=== PATIENT | female | born 1960 | race Caucasian/White ===

== ENCOUNTER → 2016-09-06 | Outpatient (CLI) | payer MEDICAID ==
[~2016-09-06] MED LIST: AMIO200T PO; ASPI-231 PO; ATOR20TA PO; CITA20TA3 PO; FUR40T PO; LISI-275 PO; MET50T PO; NITR0.4S29 SL; POTA12PO2 PO; WARF5TAB71 PO
[2016-09-06 08:27] LABS: INR 1.3 (0.7-1.3); Prothrombin Time 15.8 sec (9.0-12.0)
== END | disposition home or self-care (01) ==
LOC: LAB 08:08
PROVIDERS: ATTEND Internal Medicine Cardiovascular Disease
DX: R79.1 Abnormal coagulation profile (principal)
CPT/HCPCS: 85610

== ENCOUNTER → 2016-09-16 | Outpatient (CLI) | payer MEDICAID ==
[2016-09-16 08:22] LABS: INR 1.1 (0.7-1.3); Prothrombin Time 13.1 sec (9.0-12.0)
== END | disposition home or self-care (01) ==
LOC: LAB 08:02
PROVIDERS: ATTEND Internal Medicine Cardiovascular Disease
DX: R79.1 Abnormal coagulation profile (principal)
CPT/HCPCS: 85610

== ENCOUNTER 2017-01-10 18:09 | Inpatient (IN) | payer MEDICAID ==
[~2017-01-10] VITALS: Ht 182.9 cm; Wt 81.6 kg
[2017-01-10 18:52] LABS: Basophils # (auto) 0.1 uL; Basophils % (auto) 1.3 % (0.0-2.0); CONDITION Y; Eosinophils # (auto) 0.1 uL; Eosinophils % (auto) 2.5 % (0.0-7.0); Hematocrit 34.4 % (36.0-46.0); Hemoglobin 11.5 g/dL (12.2-16.2); Lymphocytes # (auto) 2.1 uL; Lymphocytes % (auto) 38.8 % (10.0-50.0); Mean Corpuscular Hemoglobin 33.5 pg (28.0-32.0); Mean Corpuscular Hgb Conc. 33.5 g/dL (32.0-36.0); Mean Corpuscular Volume 99.8 fL (80.0-100.0); Mean Platelet Volume 8.6 fL (7.4-10.4); Monocytes # (auto) 0.8 uL; Monocytes % (auto) 14.8 % (0.0-12.0); Neutrophils # (auto) 2.3 uL; Neutrophils % (auto) 42.6 % (37.0-80.0); Platelet Count (auto) 342 10^3/uL (140-450); Red Cell Distribution Width 14.4 % (11.6-16.0); White Blood Cell 5.5 10^3/uL (4.4-10.8)
[2017-01-10 19:15] LABS: Albumin 3.6 g/dL (3.4-5.0); Anion Gap 9 (5-15); BUN/Creatinine Ratio 16.7; Blood Urea Nitrogen 17 mg/dL (7-18); Calcium 8.1 mg/dL (8.5-10.1); Carbon Dioxide 26 mmol/L (21-32); Chloride 107 mmol/L (98-107); GFR African American 72 mL/min; GFR Non-African American 60 mL/min; Glucose 93 mg/dL (74-106); Sodium 142 mmol/L (136-145)
[2017-01-10 19:26] LABS: Alkaline Phosphatase 88 U/L (45-117); Bilirubin, Total 0.3 mg/dL (0.2-1.0); Total Protein 7.4 g/dL (6.4-8.2)
[2017-01-10 19:38] LABS: Potassium 4.6 mmol/L (3.5-5.1)
[2017-01-10 19:44] LABS: Aspartate Aminotransferase 35 U/L (15-37)
[2017-01-10] MEDS ORDERED: SODIUM CHLORIDE 0.9% 1,000 ML IVB ONE (22:27)
[2017-01-10] MEDS ORDERED: HYDROcodone-ACET 5/325MG TAB PO ONE (22:30)
[2017-01-10] MEDS ORDERED: LORazepam 2MG/ML-1ML VIAL IV ONE (22:30)
[2017-01-10] MEDS ORDERED: ONDANSETRON HCL 4 MG/2 ML VIAL IV ONE (22:30)
[2017-01-10 23:02] LABS: Basophils # (auto) 0.1 uL; Basophils % (auto) 1.2 % (0.0-2.0); CONDITION Y; Eosinophils # (auto) 0.1 uL; Eosinophils % (auto) 1.8 % (0.0-7.0); Hematocrit 37.6 % (36.0-46.0); Hemoglobin 12.6 g/dL (12.2-16.2); Lymphocytes # (auto) 1.7 uL; Lymphocytes % (auto) 25.9 % (10.0-50.0); Mean Corpuscular Hemoglobin 33.3 pg (28.0-32.0); Mean Corpuscular Hgb Conc. 33.4 g/dL (32.0-36.0); Mean Corpuscular Volume 99.6 fL (80.0-100.0); Mean Platelet Volume 8.4 fL (7.4-10.4); Monocytes # (auto) 0.8 uL; Monocytes % (auto) 11.5 % (0.0-12.0); Neutrophils % (auto) 59.6 % (37.0-80.0); Platelet Count (auto) 366 10^3/uL (140-450); Red Cell Distribution Width 14.4 % (11.6-16.0); White Blood Cell 6.7 10^3/uL (4.4-10.8)
[2017-01-10 23:12] LABS: INR 1.89 (0.9-1.15); Partial Thromboplastin Time 38.8 sec (22.64-33.71)
[2017-01-10 23:23] LABS: Prothrombin Time 20.7 sec (9.37-12.3)
[2017-01-10 23:38] LABS: Albumin 4.1 g/dL (3.4-5.0); Calcium 8.6 mg/dL (8.5-10.1); Magnesium 2.1 mg/dL (1.6-2.6)
[2017-01-10 23:40] LABS: BUN/Creatinine Ratio 17.5
[2017-01-10 23:45] LABS: Bilirubin, Total 0.3 mg/dL (0.2-1.0); Total Protein 8.1 g/dL (6.4-8.2)
[2017-01-11] MEDS ORDERED: LORazepam 2MG/ML-1ML VIAL IV PRN (01:15)
[2017-01-11] MEDS ORDERED: HYDROmorphone HCL 2 MG/ML VL IV PRN (01:15)
[2017-01-11] MEDS ORDERED: LACTULOSE 20Gm/30ML SOLN PO PRN (01:15)
[2017-01-11] MEDS ORDERED: ONDANSETRON HCL 4 MG/2 ML VIAL IV PRN (01:15)
[2017-01-11] MEDS ORDERED: NITROGLYCERIN 0.4 MG SL TAB SL PRN (01:15)
[2017-01-11] MEDS ORDERED: MORPHINE SULFATE 4 MG/ML SYRG IV PRN (01:15)
[2017-01-11] MEDS ORDERED: AMIODARONE HCL 200 MG TAB PO SCH (10:00)
[2017-01-11] MEDS ORDERED: METOPROLOL TARTRATE 25 MG TAB PO SCH (10:00)
[2017-01-11] MEDS ORDERED: CITALOPRAM HYDROBR 20 MG TAB PO SCH (10:00)
[2017-01-11] MEDS ORDERED: LISINOPRIL 5 MG TAB PO SCH (10:00)
[2017-01-11] MEDS ORDERED: PANTOPRAZOLE SODIUM 40 MG/10 ML VIAL IV SCH (10:00)
[2017-01-11] MEDS ORDERED: FUROSEMIDE 20 MG TAB PO SCH (10:00)
[2017-01-11] MEDS ORDERED: POTASSIUM CHL 20 Meq TABLET PO SCH (10:00)
[2017-01-11] MEDS ORDERED: THIAMINE INJ 100 MG, MULTIPLE VITAMIN 10 ML, FOLIC ACID 1 MG, MAGNESIUM SULF SDV 50% 8 ... IV SCH ×5 (12:00)
[2017-01-11 15:00] VITALS: BP 139/95
[2017-01-11] MEDS ORDERED: WARFARIN SODIUM 5 MG TAB PO SCH (17:00)
[2017-01-11] MEDS ORDERED: ATORVASTATIN 20 MG TAB PO SCH (22:00)
== END 2017-01-11 16:02 | disposition home or self-care (01) | DRG 347 ==
LOC: EDBD 18:09 → EDUNIT# 18:09 → ER 18:15 → TELE 18:16
PROVIDERS: ADMIT Family Medicine; ATTEND Family Medicine
DX: M54.9 Dorsalgia, unspecified (principal); I42.6 Alcoholic cardiomyopathy; F10.129 Alcohol abuse with intoxication, unspecified; F17.210 Nicotine dependence, cigarettes, uncomplicated; I48.91 Unspecified atrial fibrillation; K62.5 Hemorrhage of anus and rectum; S20.229A Contusion of unspecified back wall of thorax, initial encounter; Z83.3 Family history of diabetes mellitus; Z87.442 Personal history of urinary calculi; Z95.810 Presence of automatic (implantable) cardiac defibrillator; F32.9 Major depressive disorder, single episode, unspecified; F41.9 Anxiety disorder, unspecified; Z79.82 Long term (current) use of aspirin; Z80.9 Family history of malignant neoplasm, unspecified; Z71.9 Counseling, unspecified; Z91.81 History of falling
CPT/HCPCS: 36415; 71010; 72070; 80053; 80320; 82150; 83690; 83735; 84484; 85025; 85610; 85730; 93005; 96361; 96374; 96375; C9113; J2405

== ENCOUNTER 2017-10-25 15:02 | Emergency (ER) | payer MEDICAID ==
[~2017-10-25] VITALS: Ht 180.3 cm; Wt 95.3 kg
[~2017-10-25 15:02] MED LIST changes: +ATO40T PO; -ATOR20TA PO; +LEVO25TA6 PO; +NALT50TA5 PO
[2017-10-25 16:30] VITALS: BP 104/71
[2017-10-25] MEDS ORDERED: IBUPROFEN 800 MG TAB PO ONE (17:00)
== END 2017-10-25 17:23 | disposition home or self-care (01) ==
LOC: ER 15:05
DX: S80.02XA Contusion of left knee, initial encounter (principal); I50.9 Heart failure, unspecified; F17.210 Nicotine dependence, cigarettes, uncomplicated; E78.5 Hyperlipidemia, unspecified; Z79.01 Long term (current) use of anticoagulants; Z79.82 Long term (current) use of aspirin; Z87.442 Personal history of urinary calculi; Z95.0 Presence of cardiac pacemaker; W01.0XXA Fall on same level from slipping, tripping and stumbling without subsequent striking against object, initial encounter; Y93.89 Activity, other specified; Y99.8 Other external cause status; Y92.89 Other specified places as the place of occurrence of the external cause; Z79.899 Other long term (current) drug therapy
CPT/HCPCS: 73562

== ENCOUNTER → 2017-11-11 | Outpatient (CLI) | payer MEDICAID ==
[~2017-11-11] VITALS: Ht 180.3 cm; Wt 95.3 kg
[~2017-11-11] MED LIST changes: +ADENOSINE 80 MG in GIVE UN-DILUTED 0 ML IV ONE; +ADENOSINE 90 MG/30 ML INJ IV ONE
== END | disposition home or self-care (01) ==
LOC: Rad HDHVI 08:46
PROVIDERS: ATTEND Internal Medicine Cardiovascular Disease
DX: I42.0 Dilated cardiomyopathy (principal); I50.43 Acute on chronic combined systolic (congestive) and diastolic (congestive) heart failure; Z79.899 Other long term (current) drug therapy; Z87.891 Personal history of nicotine dependence
CPT/HCPCS: 78452; 93005; 96374; 96375; A9500; J0153

== ENCOUNTER 2018-10-25 16:15 | Inpatient (IN) | payer MEDICAID ==
[~2018-10-25] VITALS: Ht 172.7 cm; Wt 114.8 kg
[~2018-10-25 16:15] MED LIST changes: -ADENOSINE 80 MG in GIVE UN-DILUTED 0 ML IV ONE; -ADENOSINE 90 MG/30 ML INJ IV ONE; +AMI25T; -FUR40T PO; +FURO40TA PO; +LAMO200T34; +MIRT15TA3
[2018-10-25] MEDS ORDERED: SODIUM CHLORIDE 0.9% 1,000 ML IVB ONE (20:24)
[2018-10-25 20:43] LABS: Basophils # (auto) 0.1 uL; Basophils % (auto) 1.4 % (0.0-2.0); Eosinophils # (auto) 0.2 uL; Eosinophils % (auto) 3.6 % (0.0-7.0); Hematocrit 28.9 % (36.0-46.0); Hemoglobin 9.5 g/dL (12.2-16.2); Lymphocytes # (auto) 2.1 uL; Mean Corpuscular Hemoglobin 32.5 pg (28.0-32.0); Mean Corpuscular Hgb Conc. 32.9 g/dL (32.0-36.0); Mean Corpuscular Volume 98.9 fL (80.0-100.0); Monocytes # (auto) 0.5 uL; Monocytes % (auto) 6.7 % (0.0-12.0); Neutrophils # (auto) 3.9 uL; Neutrophils % (auto) 57.3 % (37.0-80.0); Nucleated Red Blood Cells % 0.1 %; Platelet Count (auto) 203 10^3/uL (140-450); Red Blood Cells 2.92 10^6/uL (4.0-5.20); Red Cell Distribution Width 15.7 % (11.8-14.3); White Blood Cell 6.9 10^3/uL (4.4-10.8)
[2018-10-25 20:53] LABS: Albumin 3.5 g/dL (3.4-5.0); Calcium 8.3 mg/dL (8.5-10.1); Magnesium 2.5 mg/dL (1.6-2.6); Potassium 4.2 mmol/L (3.5-5.1)
[2018-10-25 20:57] LABS: Bilirubin, Total 0.6 mg/dL (0.2-1.0); Total Protein 6.8 g/dL (6.4-8.2)
[2018-10-25] MEDS ORDERED: MVI in SODIUM CHLORIDE 0.9% 1,010 ML ONE (21:37)
[2018-10-25] MEDS: MULTIPLE VITAMIN 10 ML, MAGNESIUM SULF SDV 50% 8 MEQ, THIAMINE INJ 100 MG in SODIUM CHL... IV SCH (21:38)
[2018-10-26] VITALS (7 sets, daily range): BP systolic 91–146; BP diastolic 53–77
[2018-10-26] MEDS ORDERED: ACETAMINOPHEN 500 MG TAB PO PRN
[2018-10-26] MEDS ORDERED: TEMAZEPAM 15 MG CAP PO PRN
[2018-10-26] MEDS ORDERED: ONDANSETRON HCL 4 MG/2 ML VIAL IV PRN
[2018-10-26 00:27] LABS: Prothrombin Time 48.6 sec (9.27-12.13)
[2018-10-26 00:38] LABS: INR 4.97 (0.9-1.15); Partial Thromboplastin Time 73.9 sec (23.78-33.04)
[2018-10-26] MEDS ORDERED: LORazepam 2MG/ML-1ML VIAL IV PRN (00:45)
[2018-10-26] MEDS ORDERED: chlordiazePOXIDE HCL 25 MG CAP PO PRN (00:45)
--- NOTE | 2018-10-26 01:23 | NUR ---
MS admit from ER FERNANDA ACE admitted to tele/MS. Patient oriented to Michelle Davila RN primary RN, unit, room, bed, and unit policies regarding patient care and visiting hours. Patient weighed by bedscale and encouraged to call if they need something. All questions and concerns addressed, patient verbalized understanding. Note: Fall and safety precautions in place. Call light within reach.
[2018-10-26] MEDS: HYDROcodone-ACET 5/325MG TAB PO PRN ×3 (01:28→21:30)
[2018-10-26] MEDS ORDERED: PHYTONADIONE (VIT K)10 MG/ML 1ML VIAL SUBCUT ONE (01:30)
--- NOTE | 2018-10-26 02:00 | NUR ---
MRSA MRSA swab obtained of the nares and sent to lab via bullet.
[2018-10-26] MEDS ORDERED: LISI-275 PO (04:39)
[2018-10-26] MEDS ORDERED: METO25TA5 PO (04:39)
[2018-10-26] MEDS ORDERED: FURO20TA3 PO (04:39)
[2018-10-26] MEDS ORDERED: MIRT15TA3 PO (04:39)
[2018-10-26] MEDS ORDERED: LAMO200T34 PO (04:39)
[2018-10-26] MEDS ORDERED: AMIO200T33 PO (04:39)
[2018-10-26] MEDS ORDERED: PROM1SYP4 PO (04:39)
[2018-10-26] MEDS ORDERED: AZIT250T7 PO (04:39)
[2018-10-26 05:55] LABS: Basophils # (auto) 0.1 uL; Basophils % (auto) 1.2 % (0.0-2.0); Eosinophils # (auto) 0.2 uL; Eosinophils % (auto) 3.3 % (0.0-7.0); Hematocrit 27.2 % (36.0-46.0); Hemoglobin 9.3 g/dL (12.2-16.2); Lymphocytes # (auto) 1.7 uL; Lymphocytes % (auto) 25.2 % (10.0-50.0); Mean Corpuscular Hemoglobin 33.3 pg (28.0-32.0); Mean Corpuscular Hgb Conc. 34.1 g/dL (32.0-36.0); Mean Corpuscular Volume 97.8 fL (80.0-100.0); Monocytes # (auto) 0.5 uL; Neutrophils # (auto) 4.3 uL; Neutrophils % (auto) 62.3 % (37.0-80.0); Nucleated Red Blood Cells % 0.1 %; Platelet Count (auto) 209 10^3/uL (140-450); Red Blood Cells 2.78 10^6/uL (4.0-5.20); Red Cell Distribution Width 15.2 % (11.8-14.3); White Blood Cell 6.9 10^3/uL (4.4-10.8)
[2018-10-26 06:03] LABS: Potassium 4.4 mmol/L (3.5-5.1)
[2018-10-26 06:08] LABS: BUN/Creatinine Ratio 16.4; Calcium 7.8 mg/dL (8.5-10.1)
[2018-10-26 07:30] LABS: Urine Bacteria FEW /hpf (None Seen); Urine Blood Negative /uL (Negative); Urine Mucus FEW (None Seen); Urine WBC 5 /hpf (0 - 5)
--- NOTE | 2018-10-26 07:30 | NUR ---
Opening Shift Note Assuming care of patient at this time. Patient is resting in bed with her eyes closed. Patient shows no signs or symptoms of distress or shortness of breath. Patient does not appear to be in any pain at this time. Call light within reach. Will continue to round hourly and as needed.
[2018-10-26 07:45] LABS: Alcohol, Urine < 3.0 mg/dL (0-5); Amphetamine Screen, Urine NEGATIVE (NEGATIVE); Barbiturate Scree,Urine NEGATIVE (NEGATIVE); Benzodiazephine Screen, Urine NEGATIVE (NEGATIVE); Cannabinoid Screen, Urine NEGATIVE (NEGATIVE); Cocaine Screen, Urine NEGATIVE (NEGATIVE); Opiate Scree,Urine NEGATIVE (NEGATIVE); Phencyclidine Screen, Urine NEGATIVE (NEGATIVE)
[2018-10-26] MEDS: lamoTRIgine 100 MG TAB PO SCH ×2 (11:00→21:30)
[2018-10-26] MEDS: PANTOPRAZOLE 40 MG TAB PO SCH (11:01)
[2018-10-26] MEDS: CITALOPRAM HYDROBR 20 MG TAB PO SCH (11:01)
[2018-10-26] MEDS: AMIODARONE HCL 200 MG TAB PO SCH (11:02)
[2018-10-26] MEDS: FUROSEMIDE 40 MG TAB PO SCH (11:04)
[2018-10-26] MEDS: METOPROLOL TARTRATE 25 MG TAB PO SCH (11:05)
[2018-10-26] MEDS: LISINOPRIL 5 MG TAB PO SCH (11:06)
[2018-10-26] MEDS: MULTIPLE VITAMIN 10 ML, MAGNESIUM SULF SDV 50% 8 MEQ, THIAMINE INJ 100 MG in SODIUM CHL... IV SCH (12:46)
--- NOTE | 2018-10-26 16:40 | NUR ---
assessment Patient is a 57 year old female who is alert and oriented. Patients cognitive abilities are intact. Prior to admission patient lived home with family and functioned independently. Patient informed me she is able to care for her own ADLs. Per patient she will return home to her prior living arrangements post discharge and family will transport her home. Patient informed me she has no need for DME. Patient informed me her PCP is Dr Mejia. Patient will benefit for ETOH rehab on discharge. Patient refused resources stating she has her drinking under control I informed patient she has a right to speak to a social media content manager regarding all care. I informed patient she has a right to participate in any and all discharge planning. Patient is aware of visiting hours on the hospital floor. I informed patient she has a right to privacy. Patient does not have a POA and advanced directive. I have offered patient information on POA and advanced directives. I informed the patient the advantages and benefits of having an Advanced Directive. Patient verbalized understanding and agreed to discharge plan. Per consult alcohol abuse. Patient has been offered resources for inpatient and outpatient ETOH rehab facilities including AA. Patient refused resources. Addendum: 10/26/18 at 1643 by Diann Lorenzo Amended: Links added.
--- NOTE | 2018-10-26 18:58 | NUR ---
Closing Note Patient is resting in bed. Bed is locked and lowered with side rails up x2. Patient denies pain at this time. Will endorse care to the third shift lieutenant RN.
--- NOTE | 2018-10-26 19:15 | NUR ---
RECEIVED PATIENT LYING IN BED, AWAKE, ALERT, ORIENTED X4. NO S/S OF RESPIRATORY DISTRESS, DENIES SOB AND CHEST PAIN. ORIENTED ON PLAN OF CARE. BED IS LOCKED AND IN LOWEST LEVEL, SIDE RAILS UP X2, CALL LIGHT WITHIN REACH. WILL CONTINUE TO MONITOR
[2018-10-26] MEDS: ATORVASTATIN 20 MG TAB PO SCH (21:29)
[2018-10-26] MEDS ORDERED: ATORVASTATIN 20 MG TAB PO SCH (22:00)
--- NOTE | 2018-10-27 04:23 | NUR ---
PAGED DR. Joslyn MULLINS TO CONFIRM HIS PLAN TO MONITOR PATIENT BY TELEMETRY. SPOKED WITH DR. ABRAMS, HE SAID TO CALL DR. Joslyn MULLINS LATER AFTER 7 AM. CHARGE NURSE WAS INFORMED Addendum: 10/27/18 at 9521 by JEANNIE CHANDRA RN ENDORSED TO AM SHIFT RN
[2018-10-27 04:38] VITALS: BP 120/74
[2018-10-27] MEDS: GABAPENTIN 100 MG CAP PO SCH ×3 (05:39→21:58)
[2018-10-27] MEDS: HYDROcodone-ACET 5/325MG TAB PO PRN ×4 (05:39→21:58)
[2018-10-27 07:04] LABS: Basophils # (auto) 0.1 uL; Basophils % (auto) 0.9 % (0.0-2.0); Eosinophils # (auto) 0.3 uL; Eosinophils % (auto) 3.3 % (0.0-7.0); Hematocrit 29.4 % (36.0-46.0); Hemoglobin 9.8 g/dL (12.2-16.2); Lymphocytes # (auto) 0.8 uL; Lymphocytes % (auto) 10.6 % (10.0-50.0); Mean Corpuscular Hemoglobin 33.1 pg (28.0-32.0); Mean Corpuscular Hgb Conc. 33.3 g/dL (32.0-36.0); Mean Corpuscular Volume 99.4 fL (80.0-100.0); Monocytes # (auto) 0.6 uL; Monocytes % (auto) 7.4 % (0.0-12.0); Neutrophils # (auto) 6.2 uL; Neutrophils % (auto) 77.8 % (37.0-80.0); Nucleated Red Blood Cells % 0.1 %; Platelet Count (auto) 212 10^3/uL (140-450); Red Blood Cells 2.95 10^6/uL (4.0-5.20); Red Cell Distribution Width 15.5 % (11.8-14.3)
[2018-10-27 07:17] LABS: Calcium 8.6 mg/dL (8.5-10.1); INR 1.32 (0.9-1.15); Potassium 4.4 mmol/L (3.5-5.1); Prothrombin Time 13.9 sec (9.27-12.13)
[2018-10-27 07:20] LABS: BUN/Creatinine Ratio 15.9
--- NOTE | 2018-10-27 07:20 | NUR ---
CARE ENDORSED TO AM SHIFT RN
--- NOTE | 2018-10-27 07:59 | NUR ---
Assumed care of pt, awake and alert, no s&s of distress/sob or pain noted, instructed on poc and to call for assist prn, will continue to monitor for changes q1h and prn.
[2018-10-27 09:00] VITALS: BP 110/75
[2018-10-27] MEDS: AMIODARONE HCL 200 MG TAB PO SCH (09:45)
[2018-10-27] MEDS: LISINOPRIL 5 MG TAB PO SCH (09:45)
[2018-10-27] MEDS: CITALOPRAM HYDROBR 20 MG TAB PO SCH (09:45)
[2018-10-27] MEDS: METOPROLOL TARTRATE 25 MG TAB PO SCH (09:46)
[2018-10-27] MEDS: FUROSEMIDE 40 MG TAB PO SCH (09:46)
[2018-10-27] MEDS: PANTOPRAZOLE 40 MG TAB PO SCH (09:46)
[2018-10-27] MEDS: lamoTRIgine 100 MG TAB PO SCH ×2 (09:47→21:57)
--- NOTE | 2018-10-27 12:18 | NUR ---
Pt awake and alert, no s&s of distress/sob or pain noted, will continue to monitor for changes q1h and prn.
[2018-10-27] MEDS: MULTIPLE VITAMIN 10 ML, MAGNESIUM SULF SDV 50% 8 MEQ, THIAMINE INJ 100 MG in SODIUM CHL... IV SCH (12:25)
[2018-10-27 13:00] VITALS: BP 121/87
--- NOTE | 2018-10-27 15:57 | NUR ---
Pt awake and alert, no s&s of distress/sob or pain noted, will continue to monitor for changes q1h and prn.
[2018-10-27 17:00] VITALS: BP 122/72
[2018-10-27] MEDS: ATORVASTATIN 20 MG TAB PO SCH (21:57)
[2018-10-27 22:00] VITALS: BP 120/73
--- NOTE | 2018-10-28 01:32 | NUR ---
DR. Joslyn MULLINS AT BEDSIDE; TO KEEP PATIENT ON MED-SURG, FOR POSSIBLE D/C TOMORROW
[2018-10-28] MEDS: HYDROcodone-ACET 5/325MG TAB PO PRN ×3 (04:34→18:15)
[2018-10-28 05:00] VITALS: BP 123/69
[2018-10-28] MEDS: GABAPENTIN 100 MG CAP PO SCH ×3 (05:30→21:22)
[2018-10-28 05:59] LABS: Basophils # (auto) 0.1 uL; Basophils % (auto) 0.8 % (0.0-2.0); Eosinophils # (auto) 0.3 uL; Eosinophils % (auto) 3.4 % (0.0-7.0); Hematocrit 29.1 % (36.0-46.0); Hemoglobin 9.7 g/dL (12.2-16.2); Lymphocytes % (auto) 13.7 % (10.0-50.0); Mean Corpuscular Hemoglobin 33.6 pg (28.0-32.0); Mean Corpuscular Hgb Conc. 33.5 g/dL (32.0-36.0); Mean Corpuscular Volume 100.1 fL (80.0-100.0); Monocytes # (auto) 0.6 uL; Monocytes % (auto) 8.6 % (0.0-12.0); Neutrophils # (auto) 5.4 uL; Neutrophils % (auto) 73.5 % (37.0-80.0); Nucleated Red Blood Cells % 0.1 %; Platelet Count (auto) 215 10^3/uL (140-450); Red Cell Distribution Width 15.6 % (11.8-14.3); White Blood Cell 7.4 10^3/uL (4.4-10.8)
[2018-10-28 06:18] LABS: Potassium 4.1 mmol/L (3.5-5.1)
[2018-10-28 06:22] LABS: Calcium 8.5 mg/dL (8.5-10.1)
--- NOTE | 2018-10-28 07:33 | NUR ---
CARE ENDORSED TO AM SHIFT RN
[2018-10-28 09:00] VITALS: BP 94/55
[2018-10-28] MEDS: LISINOPRIL 5 MG TAB PO SCH (10:00)
[2018-10-28] MEDS: METOPROLOL TARTRATE 25 MG TAB PO SCH (10:00)
[2018-10-28] MEDS: FUROSEMIDE 40 MG TAB PO SCH (10:00)
[2018-10-28] MEDS: lamoTRIgine 100 MG TAB PO SCH ×2 (10:13→21:21)
[2018-10-28] MEDS: AMIODARONE HCL 200 MG TAB PO SCH (10:13)
[2018-10-28] MEDS: CITALOPRAM HYDROBR 20 MG TAB PO SCH (10:13)
[2018-10-28] MEDS: PANTOPRAZOLE 40 MG TAB PO SCH (10:13)
[2018-10-28 13:00] VITALS: BP 117/66
[2018-10-28] MEDS: MULTIPLE VITAMIN 10 ML, MAGNESIUM SULF SDV 50% 8 MEQ, THIAMINE INJ 100 MG in SODIUM CHL... IV SCH (15:33)
[2018-10-28 16:20] VITALS: BP 110/65
--- NOTE | 2018-10-28 20:00 | NUR ---
ASSUMED CARE, PT. AWAKE, NO C/O PAIN, NO SOB.
[2018-10-28] MEDS: ATORVASTATIN 20 MG TAB PO SCH (21:22)
[2018-10-28 22:00] VITALS: BP 118/67
[2018-10-29 05:00] VITALS: BP 114/59
[2018-10-29 06:02] LABS: Basophils # (auto) 0.1 uL; Basophils % (auto) 1.1 % (0.0-2.0); Eosinophils # (auto) 0.3 uL; Eosinophils % (auto) 4.1 % (0.0-7.0); Hematocrit 29.1 % (36.0-46.0); Hemoglobin 9.7 g/dL (12.2-16.2); Lymphocytes # (auto) 1.1 uL; Lymphocytes % (auto) 17.6 % (10.0-50.0); Mean Corpuscular Hemoglobin 33.5 pg (28.0-32.0); Mean Corpuscular Hgb Conc. 33.4 g/dL (32.0-36.0); Mean Corpuscular Volume 100.2 fL (80.0-100.0); Monocytes # (auto) 0.7 uL; Monocytes % (auto) 11.4 % (0.0-12.0); Neutrophils # (auto) 4.1 uL; Neutrophils % (auto) 65.8 % (37.0-80.0); Platelet Count (auto) 233 10^3/uL (140-450); Red Cell Distribution Width 15.4 % (11.8-14.3); White Blood Cell 6.3 10^3/uL (4.4-10.8)
[2018-10-29 06:22] LABS: BUN/Creatinine Ratio 15.4; Calcium 8.4 mg/dL (8.5-10.1); Potassium 4.3 mmol/L (3.5-5.1)
[2018-10-29] MEDS: GABAPENTIN 100 MG CAP PO SCH ×2 (07:29→14:47)
--- NOTE | 2018-10-29 07:46 | NUR ---
Opening Shift Note Assumed care of patient, awake and alert. Patient sitting in bed, no S/S of distress/SOB or pain. Instructed on POC and to call for assist PRN, will continue to monitor for changes Q1hr and PRN.
[2018-10-29 09:00] VITALS: BP 94/56
[2018-10-29] MEDS: AMIODARONE HCL 200 MG TAB PO SCH (09:18)
[2018-10-29] MEDS: FUROSEMIDE 40 MG TAB PO SCH (09:18)
[2018-10-29] MEDS: LISINOPRIL 5 MG TAB PO SCH (09:19)
[2018-10-29] MEDS: METOPROLOL TARTRATE 25 MG TAB PO SCH (09:19)
[2018-10-29] MEDS: HYDROcodone-ACET 5/325MG TAB PO PRN ×3 (09:31→20:37)
[2018-10-29] MEDS: lamoTRIgine 100 MG TAB PO SCH (09:31)
[2018-10-29] MEDS: PANTOPRAZOLE 40 MG TAB PO SCH (09:32)
[2018-10-29] MEDS: CITALOPRAM HYDROBR 20 MG TAB PO SCH (09:32)
[2018-10-29] MEDS: MULTIPLE VITAMIN 10 ML, MAGNESIUM SULF SDV 50% 8 MEQ, THIAMINE INJ 100 MG in SODIUM CHL... IV SCH (12:00)
[2018-10-29 12:27] VITALS: BP 117/68
--- NOTE | 2018-10-29 14:48 | NUR ---
NUTRITION ASSESSMENT NOTES Please refer to link notes of nutrition screen form filed under the intervention section of the plan of care for further details. Est. Needs: 1900 kcal to 2300 kcal (15-20 kcal/kgBW), 92 gms to 115 gms pro (0.8-1.0 gm/kgBW). Will continue to monitor pertinent labs and reassess nutrient need prn Thank you. Addendum: 10/29/18 at [address] Amended: Links added.
--- NOTE | 2018-10-29 16:19 | NUR ---
VISITOR CONTACT PATIENT REQUESTING THAT A PERSON OF THE NAME "DANIKA MENDOZA" NOT BE GIVEN ANY INFORMATION REGARDING PATIENT. PATIENT STATED HE DOES NOT HAVE THE PASSWORD AND DOES NOT KNOW WHAT ROOM THE PATIENT IS IN BUT IN CASE HE SHOWS UP AT HOSPITAL SHE DOES NOT WANT ANY INFORMATION PROVIDED TO HIM. NOTE PLACED ON PATIENT ROOM DOOR AND AT NURSE STATION, FRONT VISITOR DESK NOTIFIED AND WELL SECURITY. PATIENT INFORMED AND VERBALIZED APPRECIATION.
[2018-10-29 16:21] VITALS: BP 124/78
--- NOTE | 2018-10-29 16:22 | NUR ---
PT PAGED TWICE PER PATIENT REQUEST FOR WALKER.
--- NOTE | 2018-10-29 16:32 | NUR ---
VISITOR UPDATE PATIENT ALSO REQUESTING TO ADD TO THE "NO INFORMATION LIST HER SON NOBLE AND DAUGHTER/INLAW YULIET ACE. SECURITY AND CLUTCH REBUILDER UPDATED.
[2018-10-29] MEDS ORDERED: GAB100C PO (20:16)
[2018-10-29] MEDS ORDERED: MISC-573 XX (20:16)
[2018-10-29] MEDS ORDERED: GABA100C9 PO (20:50)
[2018-10-29 22:00] VITALS: BP_SYST 11; BP_SYST 123; BP_DIAS 71; BP_DIAS 80
--- NOTE | 2018-10-29 22:17 | NUR ---
DISCHARGE Discharge instructions given as ordered. Encourage to follow up with primary care provider as instructed. All questions and concerns addressed. Patient verbalized understanding. Medication reconciliation form completed and copy given to patient. IV removed with catheter intact and pressure dressing applied. Patient issued a taxi voucher and taken to lobby via wheelchair with all personal belongings, accompanied by staff. No distress noted at time of departure.
== END 2018-10-29 22:20 | disposition home or self-care (01) | DRG 82 ==
LOC: EDBD 16:15 → ER 16:19 → OVERFLOW 10-26 → WEST WING 10-26 01:23
PROVIDERS: ADMIT Nurse Practitioner Family; ATTEND Internal Medicine
DX: S00.12XA Contusion of left eyelid and periocular area, initial encounter (principal); J84.9 Interstitial pulmonary disease, unspecified; I13.0 Hypertensive heart and chronic kidney disease with heart failure and stage 1 through stage 4 chronic kidney disease, or unspecified chronic kidney disease; I50.9 Heart failure, unspecified; J43.9 Emphysema, unspecified; I48.91 Unspecified atrial fibrillation; M48.02 Spinal stenosis, cervical region; D64.9 Anemia, unspecified; S93.402A Sprain of unspecified ligament of left ankle, initial encounter; N18.3 Chronic kidney disease, stage 3 (moderate); E78.5 Hyperlipidemia, unspecified; I25.10 Atherosclerotic heart disease of native coronary artery without angina pectoris; E89.0 Postprocedural hypothyroidism; F10.20 Alcohol dependence, uncomplicated; F32.9 Major depressive disorder, single episode, unspecified; R29.6 Repeated falls; L92.9 Granulomatous disorder of the skin and subcutaneous tissue, unspecified; F17.210 Nicotine dependence, cigarettes, uncomplicated; F41.9 Anxiety disorder, unspecified; I70.0 Atherosclerosis of aorta; M40.50 Lordosis, unspecified, site unspecified; W10.1XXA Fall (on)(from) sidewalk curb, initial encounter; Y93.01 Activity, walking, marching and hiking; Z79.82 Long term (current) use of aspirin; Z79.899 Other long term (current) drug therapy; Z80.0 Family history of malignant neoplasm of digestive organs; I25.2 Old myocardial infarction; Z82.3 Family history of stroke; Z82.49 Family history of ischemic heart disease and other diseases of the circulatory system; Z82.5 Family history of asthma and other chronic lower respiratory diseases; Z83.3 Family history of diabetes mellitus; Z85.038 Personal history of other malignant neoplasm of large intestine; Z91.81 History of falling; Z95.0 Presence of cardiac pacemaker
CPT/HCPCS: 36415; 70450; 70486; 71250; 72125; 73080; 73562; 73610; 80048; 80053; 80307; 80320; 81001; 82150; 83690; 83735; 84484; 85025; 85610; 85730; 87081; 93005; 94761; 96360; 96372; G0378; J3430

== ENCOUNTER 2018-12-09 21:58 | Emergency (ER) | payer MEDICAID ==
[~2018-12-09] VITALS: Ht 180.3 cm; Wt 95.3 kg
[~2018-12-09 21:58] MED LIST changes: -AMI25T; -AMIO200T PO; +AMIO200T33 PO; -ATO40T PO; +AZIT250T7 PO; +FURO20TA3 PO; -FURO40TA PO; +GAB100C PO; +GABA100C9 PO; -LAMO200T34; +LAMO200T34 PO; -LEVO25TA6 PO; -MET50T PO; +METO25TA5 PO; -MIRT15TA3; +MIRT15TA3 PO; +MISC-573 XX; -NALT50TA5 PO; -NITR0.4S29 SL; -POTA12PO2 PO; +PROM1SYP4 PO; -WARF5TAB71 PO
[2018-12-09 23:09] LABS: Basophils # (auto) 0.1 uL; Basophils % (auto) 1.5 % (0.0-2.0); Eosinophils # (auto) 0.2 uL; Eosinophils % (auto) 2.2 % (0.0-7.0); Hematocrit 38.6 % (36.0-46.0); Hemoglobin 12.7 g/dL (12.2-16.2); Lymphocytes # (auto) 1.8 uL; Lymphocytes % (auto) 22.1 % (10.0-50.0); Mean Corpuscular Hemoglobin 32.4 pg (28.0-32.0); Mean Corpuscular Hgb Conc. 32.8 g/dL (32.0-36.0); Mean Corpuscular Volume 98.8 fL (80.0-100.0); Monocytes # (auto) 0.8 uL; Monocytes % (auto) 9.2 % (0.0-12.0); Neutrophils # (auto) 5.4 uL; Platelet Count (auto) 355 10^3/uL (140-450); Red Blood Cells 3.91 10^6/uL (4.0-5.20); Red Cell Distribution Width 14.9 % (11.8-14.3); White Blood Cell 8.3 10^3/uL (4.4-10.8)
[2018-12-09 23:28] LABS: Albumin 4.1 g/dL (3.4-5.0); BUN/Creatinine Ratio 16.7; Calcium 9.4 mg/dL (8.5-10.1); Potassium 4.1 mmol/L (3.5-5.1)
[2018-12-09 23:30] LABS: Bilirubin, Total 0.4 mg/dL (0.2-1.0)
[2018-12-10 07:38] VITALS: BP 125/71
[2018-12-10] MEDS ORDERED: cefTRIAXone SOD 1,000 MG VL IM ONE (09:00)
[2018-12-10] MEDS ORDERED: LIDOCAINE 2% (LOCAL ANESTH.) PF 5ml SDV ONE (09:05)
[2018-12-10] MEDS ORDERED: HYDROcodone-ACET 5/325MG TAB PO ONE (09:15)
== END 2018-12-10 10:22 | disposition home or self-care (01) ==
LOC: ER 22:16
DX: L03.116 Cellulitis of left lower limb (principal); I50.9 Heart failure, unspecified; E78.5 Hyperlipidemia, unspecified; F17.210 Nicotine dependence, cigarettes, uncomplicated; Z95.0 Presence of cardiac pacemaker; Z79.899 Other long term (current) drug therapy; Z79.82 Long term (current) use of aspirin
CPT/HCPCS: 36415; 73590; 80053; 85025; 87040; 96372; 99284; J0696; J2001

== ENCOUNTER 2018-12-22 00:21 | Emergency (ER) | payer MEDICAID ==
[~2018-12-22] VITALS: Ht 180.3 cm; Wt 90.7 kg
[2018-12-22 01:34] LABS: Basophils # (auto) 0.1 uL; Basophils % (auto) 0.8 % (0.0-2.0); Eosinophils # (auto) 0.2 uL; Eosinophils % (auto) 3.5 % (0.0-7.0); Hematocrit 38.8 % (36.0-46.0); Hemoglobin 12.3 g/dL (12.2-16.2); Lymphocytes # (auto) 1.8 uL; Lymphocytes % (auto) 25.7 % (10.0-50.0); Mean Corpuscular Hemoglobin 31.5 pg (28.0-32.0); Mean Corpuscular Hgb Conc. 31.7 g/dL (32.0-36.0); Mean Corpuscular Volume 99.5 fL (80.0-100.0); Monocytes # (auto) 0.6 uL; Monocytes % (auto) 8.5 % (0.0-12.0); Neutrophils # (auto) 4.3 uL; Neutrophils % (auto) 61.5 % (37.0-80.0); Platelet Count (auto) 351 10^3/uL (140-450); Red Cell Distribution Width 15.2 % (11.8-14.3); White Blood Cell 7.1 10^3/uL (4.4-10.8)
[2018-12-22 02:00] LABS: Albumin 3.8 g/dL (3.4-5.0); BUN/Creatinine Ratio 14.4; Calcium 8.7 mg/dL (8.5-10.1); Potassium 3.9 mmol/L (3.5-5.1)
[2018-12-22 02:02] LABS: Bilirubin, Total 0.2 mg/dL (0.2-1.0); Total Protein 7.5 g/dL (6.4-8.2)
[2018-12-22 07:34] VITALS: BP 126/79
[2018-12-22] MEDS ORDERED: cefTRIAXone SOD 1,000 MG VL IM ONE (08:00)
[2018-12-22] MEDS ORDERED: LIDOCAINE 1% HCL (LOCAL ANESTH.) INJ 20ML MDV IJ ONE (08:15)
== END 2018-12-22 08:42 | disposition home or self-care (01) ==
LOC: ER 00:26
DX: M79.605 Pain in left leg (principal); F17.210 Nicotine dependence, cigarettes, uncomplicated; E78.5 Hyperlipidemia, unspecified; Z95.0 Presence of cardiac pacemaker; Z79.899 Other long term (current) drug therapy
CPT/HCPCS: 36415; 80053; 85025; 87040; 96372; 99283; J0696; J2001

== ENCOUNTER 2019-02-05 18:14 | Emergency (ER) | payer MEDICAID ==
[~2019-02-05] VITALS: Ht 180.3 cm; Wt 95.3 kg
[~2019-02-05 18:14] MED LIST changes: -MIRT15TA3 PO; +MIRT1TAB38 PO; -PROM1SYP4 PO; +PROM2SYP2 PO
[2019-02-05 19:46] VITALS: BP 101/69
[2019-02-05] MEDS ORDERED: methylPREDNISolone SOD SUCC 125 MG/2 ML VL IM ONE (20:00)
[2019-02-05] MEDS ORDERED: diphenhdrAMINE HCL 50 MG/1 ML VL IM ONE (20:00)
[2019-02-05] MEDS ORDERED: EPINEPHrine HCL 1 MG/1 ML AMP IM ONE (20:00)
== END 2019-02-05 20:49 | disposition home or self-care (01) ==
LOC: ER 18:14
DX: T78.40XA Allergy, unspecified, initial encounter (principal); I25.10 Atherosclerotic heart disease of native coronary artery without angina pectoris; I50.9 Heart failure, unspecified; E78.5 Hyperlipidemia, unspecified; F17.210 Nicotine dependence, cigarettes, uncomplicated; Z95.0 Presence of cardiac pacemaker; Z79.82 Long term (current) use of aspirin; X58.XXXA Exposure to other specified factors, initial encounter
CPT/HCPCS: 96372; 99283; J0171; J1200; J2930

== ENCOUNTER 2019-02-16 17:29 | Emergency (ER) | payer MEDICAID ==
[~2019-02-16] VITALS: Ht 180.3 cm; Wt 90.7 kg
[2019-02-17] MEDS ORDERED: methylPREDNISolone SOD SUCC 125 MG/2 ML VL IM ONE (03:15)
[2019-02-17] MEDS ORDERED: diphenhdrAMINE HCL 50 MG/1 ML VL IM ONE (03:15)
[2019-02-17 04:21] LABS: Basophils # (auto) 0.1 uL; Eosinophils # (auto) 0.3 uL; Eosinophils % (auto) 2.9 % (0.0-7.0); Hematocrit 41.2 % (36.0-46.0); Hemoglobin 13.8 g/dL (12.2-16.2); Lymphocytes # (auto) 1.7 uL; Lymphocytes % (auto) 19.5 % (10.0-50.0); Mean Corpuscular Hemoglobin 31.8 pg (28.0-32.0); Mean Corpuscular Hgb Conc. 33.5 g/dL (32.0-36.0); Mean Corpuscular Volume 95.1 fL (80.0-100.0); Monocytes # (auto) 0.8 uL; Monocytes % (auto) 8.4 % (0.0-12.0); Neutrophils # (auto) 6.1 uL; Neutrophils % (auto) 68.2 % (37.0-80.0); Nucleated Red Blood Cells % 0.1 %; Platelet Count (auto) 337 10^3/uL (140-450); Red Blood Cells 4.33 10^6/uL (4.0-5.20); Red Cell Distribution Width 15.6 % (11.8-14.3); White Blood Cell 8.9 10^3/uL (4.4-10.8)
[2019-02-17 04:45] LABS: Alanine Aminotransferase 23 U/L (13-56); Anion Gap 9 (5-15); Aspartate Aminotransferase 19 U/L (15-37); Blood Urea Nitrogen 23 mg/dL (7-18); Calcium 8.3 mg/dL (8.5-10.1); Carbon Dioxide 25 mmol/L (21-32); Chloride 108 mmol/L (98-107); Glucose 97 mg/dL (74-106); Magnesium 2.4 mg/dL (1.6-2.6); Sodium 142 mmol/L (136-145)
[2019-02-17 04:50] LABS: Alkaline Phosphatase 93 U/L (45-117); BUN/Creatinine Ratio 22.3; Bilirubin, Total 0.4 mg/dL (0.2-1.0); GFR African American 71 mL/min; GFR Non-African American 59 mL/min; Total Protein 7.8 g/dL (6.4-8.2)
[2019-02-17 04:52] LABS: INR 2.3 (0.9-1.15); Partial Thromboplastin Time 44.8 sec (23.64-32.05)
[2019-02-17] MEDS ORDERED: FUROSEMIDE 20 MG TAB PO ONE (07:45)
[2019-02-17] MEDS ORDERED: SPIRONOLACTONE 25 MG TAB PO ONE (07:45)
[2019-02-17 08:10] VITALS: BP 147/82
== END 2019-02-17 08:33 | disposition home or self-care (01) ==
LOC: ER 17:29
DX: L23.9 Allergic contact dermatitis, unspecified cause (principal); I48.91 Unspecified atrial fibrillation; F17.210 Nicotine dependence, cigarettes, uncomplicated; E78.5 Hyperlipidemia, unspecified; I11.0 Hypertensive heart disease with heart failure; I50.9 Heart failure, unspecified; Z95.0 Presence of cardiac pacemaker; Z79.2 Long term (current) use of antibiotics; Z79.82 Long term (current) use of aspirin; Z79.899 Other long term (current) drug therapy
CPT/HCPCS: 36415; 71046; 80053; 83735; 83880; 84484; 85025; 85610; 85730; 93005; 94761; 96372; 99284; J1200; J2930

== ENCOUNTER 2021-05-21 17:34 | Inpatient (IN) | payer MEDICAID ==
[~2021-05-21] VITALS: Ht 180.3 cm; Wt 84.1 kg
[~2021-05-21 17:34] MED LIST changes: -ASPI-231 PO; +ASPI1TAB20 PO; -AZIT250T7 PO; +AZIT250T9 PO
[2021-05-21] MEDS ORDERED: methylPREDNISolone SOD SUCC 125 MG/2 ML VL IV ONE (18:15)
[2021-05-21 18:52] LABS: Basophils # (auto) 0.1 10 ^3/uL (0-0.2); Basophils % (auto) 0.6 % (0.0-2.0); Eosinophils # (auto) 0 10 ^3/uL (0-0.8); Eosinophils % (auto) 0.5 % (0.0-7.0); Hematocrit 48.5 % (36.0-46.0); Hemoglobin 15.8 g/dL (12.2-16.2); Lymphocytes # (auto) 1.9 10 ^3/uL (0.4-5.4); Lymphocytes % (auto) 19.3 % (10.0-50.0); Mean Corpuscular Hemoglobin 33.1 pg (28.0-32.0); Mean Corpuscular Hgb Conc. 32.7 g/dL (32.0-36.0); Mean Corpuscular Volume 101.3 fL (80.0-100.0); Monocytes # (auto) 0.7 10 ^3/uL (0-1.3); Monocytes % (auto) 7.2 % (0.0-12.0); Neutrophils # (auto) 7.2 10 ^3/uL (1.6-8.6); Neutrophils % (auto) 72.4 % (37.0-80.0); Nucleated Red Blood Cells % 0.2 %; Red Blood Cells 4.79 10^6/uL (4.0-5.20); Red Cell Distribution Width 14.5 % (11.8-14.3)
[2021-05-21 19:07] LABS: Albumin 3.3 g/dL (3.4-5.0); Potassium 3.9 mmol/L (3.5-5.1)
[2021-05-21 19:13] LABS: BUN/Creatinine Ratio 15.9; Total Protein 7.3 g/dL (6.4-8.2)
[2021-05-21 19:26] LABS: CRP High Sensitivity 1.1 mg/dL (< 0.3); Magnesium 2.3 mg/dL (1.6-2.6)
[2021-05-21] MEDS ORDERED: ENOXAPARIN SOD 100 MG/1 ML SYRINGE SC ONE (20:30)
[2021-05-21] MEDS ORDERED: ASPirin 81 mg TAB PO ONE (20:30)
[2021-05-21] MEDS ORDERED: ASPirin 81 mg TAB ONE (20:48)
[2021-05-21] MEDS ORDERED: FUROSEMIDE 40 MG/4 ML VIAL IV ONE (21:45)
[2021-05-21] MEDS ORDERED: ONDANSETRON HCL 4 MG/2 ML VIAL IV ONE (22:15)
[2021-05-21] MEDS ORDERED: MORPHINE SULFATE 4 MG/ML SYR/VIAL IV ONE (22:15)
[2021-05-21 22:38] LABS: Urine Bacteria NONE SEEN /hpf (None Seen); Urine Blood Negative /uL (Negative); Urine Mucus FEW (None Seen); Urine Specific Gravity 1.021 (1.001-1.035); Urine WBC 4 /hpf (0 - 5)
[2021-05-21] MEDS ORDERED: NITROGLYCERIN 0.4 MG SL TAB SL PRN (22:45)
[2021-05-21] MEDS ORDERED: POTASSIUM CHL 20 Meq TABLET PO ONE (22:45)
[2021-05-21] MEDS ORDERED: AMIODARONE HCL 150 MG in D5W 5% 100 ML IV ONE (22:45)
[2021-05-21] MEDS ORDERED: ONDANSETRON HCL 4 MG/2 ML VIAL IV PRN (22:45)
[2021-05-21] MEDS ORDERED: AMIODARONE 450mg/250ml AE 250 ML IV SCH (23:00)
[2021-05-21] MEDS ORDERED: AMIODARONE HCL (50 MG/ ML) 3 ML VIAL IV ONE (23:04)
[2021-05-22] MEDS ORDERED: DOCUSATE SOD 100 MG CAP PO PRN (00:30)
[2021-05-22] MEDS ORDERED: MORPHINE SULFATE 4 MG/ML SYR/VIAL IV PRN (00:30)
[2021-05-22] MEDS ORDERED: NITROGLYCERIN 0.4 MG SL TAB SL PRN (00:30)
[2021-05-22] MEDS: MORPHINE SULFATE INJECTION 2 MG/ML SYRG IV PRN ×2 (01:16→11:09)
[2021-05-22 03:58] LABS: INR 1.25 (0.9-1.15)
[2021-05-22] MEDS ORDERED: AMIODARONE 450mg/250ml AE 250 ML IV SCH (05:00)
[2021-05-22] MEDS: FUROSEMIDE 20 MG/2 ML VIAL IV SCH ×2 (06:38→18:13)
[2021-05-22] MEDS: HYDROcodone-ACET 10/325MG TAB PO PRN (06:38)
[2021-05-22 08:29] LABS: Basophils # (auto) 0 10 ^3/uL (0-0.2); Basophils % (auto) 0.2 % (0.0-2.0); Eosinophils # (auto) 0 10 ^3/uL (0-0.8); Hemoglobin 15.7 g/dL (12.2-16.2); Lymphocytes # (auto) 0.8 10 ^3/uL (0.4-5.4); Monocytes # (auto) 0.3 10 ^3/uL (0-1.3)
[2021-05-22 08:31] LABS: Hematocrit 48.2 % (36.0-46.0); Lymphocytes % (auto) 9.6 % (10.0-50.0); Mean Corpuscular Hemoglobin 33.4 pg (28.0-32.0); Mean Corpuscular Hgb Conc. 32.5 g/dL (32.0-36.0); Mean Corpuscular Volume 102.6 fL (80.0-100.0); Monocytes % (auto) 3.5 % (0.0-12.0); Neutrophils % (auto) 86.7 % (37.0-80.0); Nucleated Red Blood Cells % 0.4 %; Red Blood Cells 4.69 10^6/uL (4.0-5.20); Red Cell Distribution Width 14.8 % (11.8-14.3); White Blood Cell 8.1 10^3/uL (4.4-10.8)
[2021-05-22 08:42] LABS: Potassium 5.5 mmol/L (3.5-5.1)
[2021-05-22 08:45] LABS: BUN/Creatinine Ratio 19.2
[2021-05-22] MEDS ORDERED: ENOXAPARIN SOD 100 MG/1 ML SYRINGE SC SCH (10:00)
[2021-05-22] MEDS: ASPirin-EC 81 mg tab PO SCH (10:42)
[2021-05-22] MEDS ORDERED: HEPARIN DRIP/D5W 100UNITS/ML 250 ML IV SCH ×2 (11:00→12:00)
[2021-05-22 12:13] LABS: INR 1.48 (0.9-1.15); Partial Thromboplastin Time 28.4 sec (23.6-33.0)
[2021-05-22] MEDS: ONDANSETRON HCL 4 MG/2 ML VIAL IV PRN (12:53)
[2021-05-22 20:30] LABS: INR 1.69 (0.9-1.15); Partial Thromboplastin Time 36.2 sec (23.6-33.0)
[2021-05-22] MEDS: AMIODARONE HCL 200 MG TAB PO SCH (21:21)
[2021-05-22] MEDS: HEPARIN DRIP/D5W 100UNITS/ML 250 ML IV SCH (21:25)
[2021-05-22] MEDS: ATORVASTATIN 20 MG TAB PO SCH (21:26)
[2021-05-22 21:49] VITALS: BP 122/84
[2021-05-22 22:00] VITALS: BP 115/76
[2021-05-22] MEDS ORDERED: INFLUENZA QUAD 2021-2022 0.5 ML SYRG IM ONE (23:00)
[2021-05-23 04:24] LABS: Basophils # (auto) 0 10 ^3/uL (0-0.2); Basophils % (auto) 0.3 % (0.0-2.0); Eosinophils # (auto) 0 10 ^3/uL (0-0.8); Eosinophils % (auto) 0.1 % (0.0-7.0); Hemoglobin 14.8 g/dL (12.2-16.2); Lymphocytes # (auto) 2.1 10 ^3/uL (0.4-5.4); Lymphocytes % (auto) 18.1 % (10.0-50.0); Mean Corpuscular Hemoglobin 33.2 pg (28.0-32.0); Mean Corpuscular Hgb Conc. 32.8 g/dL (32.0-36.0); Mean Corpuscular Volume 101.5 fL (80.0-100.0); Monocytes # (auto) 1.2 10 ^3/uL (0-1.3); Monocytes % (auto) 10.7 % (0.0-12.0); Neutrophils # (auto) 8.3 10 ^3/uL (1.6-8.6); Neutrophils % (auto) 70.8 % (37.0-80.0); Nucleated Red Blood Cells % 0.8 %; Red Blood Cells 4.44 10^6/uL (4.0-5.20); Red Cell Distribution Width 14.4 % (11.8-14.3); White Blood Cell 11.7 10^3/uL (4.4-10.8)
[2021-05-23 04:30] LABS: Albumin 2.9 g/dL (3.4-5.0); Calcium 8.2 mg/dL (8.5-10.1); Potassium 4.6 mmol/L (3.5-5.1)
[2021-05-23 04:32] LABS: BUN/Creatinine Ratio 24.3
[2021-05-23 04:34] LABS: INR 1.68 (0.9-1.15); Partial Thromboplastin Time 67.5 sec (23.6-33.0)
[2021-05-23 04:37] LABS: Bilirubin, Total 2.7 mg/dL (0.2-1.0); Total Protein 6.5 g/dL (6.4-8.2)
[2021-05-23 05:00] VITALS: BP 115/84
[2021-05-23] MEDS: FUROSEMIDE 20 MG/2 ML VIAL IV SCH ×2 (06:05→17:42)
[2021-05-23] MEDS: AMIODARONE HCL 200 MG TAB PO SCH ×3 (06:06→20:37)
[2021-05-23] MEDS: MORPHINE SULFATE INJECTION 2 MG/ML SYRG IV PRN ×2 (06:12→19:37)
[2021-05-23] MEDS ORDERED: QUET50TA PO (06:34)
[2021-05-23 08:00] VITALS: BP 97/74
[2021-05-23 09:00] VITALS: BP 97/74
[2021-05-23] MEDS: ASPirin-EC 81 mg tab PO SCH (10:00)
[2021-05-23 11:12] LABS: INR 1.66 (0.9-1.15); Partial Thromboplastin Time 58.8 sec (23.6-33.0)
[2021-05-23] MEDS ORDERED: AMIODARONE HCL 150 MG in D5W 5% 100 ML IV ONE (11:45)
[2021-05-23 13:00] VITALS: BP 101/70
[2021-05-23] MEDS: NICOTINE 14 MG/24HR TOPICAL PATCH TD SCH (13:51)
[2021-05-23] MEDS: HYDROcodone-ACET 10/325MG TAB PO PRN (14:07)
[2021-05-23 16:53] VITALS: BP 109/8
[2021-05-23 20:08] LABS: INR 1.56 (0.9-1.15); Partial Thromboplastin Time 60.9 sec (23.6-33.0)
[2021-05-23] MEDS: ATORVASTATIN 20 MG TAB PO SCH (20:37)
[2021-05-23 21:30] VITALS: BP 105/68
[2021-05-23] MEDS: HEPARIN DRIP/D5W 100UNITS/ML 250 ML IV SCH (22:15)
[2021-05-24 05:00] VITALS: BP 91/61
[2021-05-24 05:40] LABS: Basophils # (auto) 0.1 10 ^3/uL (0-0.2); Basophils % (auto) 1.8 % (0.0-2.0); Eosinophils # (auto) 0.1 10 ^3/uL (0-0.8); Eosinophils % (auto) 1.9 % (0.0-7.0); Hematocrit 43.4 % (36.0-46.0); Hemoglobin 14.7 g/dL (12.2-16.2); Lymphocytes # (auto) 1.7 10 ^3/uL (0.4-5.4); Lymphocytes % (auto) 22.8 % (10.0-50.0); Mean Corpuscular Hemoglobin 33.5 pg (28.0-32.0); Mean Corpuscular Hgb Conc. 33.8 g/dL (32.0-36.0); Mean Corpuscular Volume 99.1 fL (80.0-100.0); Monocytes # (auto) 0.7 10 ^3/uL (0-1.3); Monocytes % (auto) 9.2 % (0.0-12.0); Neutrophils # (auto) 4.7 10 ^3/uL (1.6-8.6); Neutrophils % (auto) 64.3 % (37.0-80.0); Nucleated Red Blood Cells % 0.6 %; Red Blood Cells 4.38 10^6/uL (4.0-5.20); Red Cell Distribution Width 14.3 % (11.8-14.3); White Blood Cell 7.3 10^3/uL (4.4-10.8)
[2021-05-24 05:45] LABS: BUN/Creatinine Ratio 35.3; Calcium 7.7 mg/dL (8.5-10.1); Potassium 3.4 mmol/L (3.5-5.1)
[2021-05-24] MEDS: FUROSEMIDE 20 MG/2 ML VIAL IV SCH ×2 (06:00→17:51)
[2021-05-24 06:16] LABS: INR 1.52 (0.9-1.15)
[2021-05-24] MEDS: AMIODARONE HCL 200 MG TAB PO SCH ×3 (06:20→21:15)
[2021-05-24 06:37] LABS: Partial Thromboplastin Time 70.3 sec (23.6-33.0)
[2021-05-24 08:34] VITALS: BP 121/74
[2021-05-24] MEDS: NICOTINE 14 MG/24HR TOPICAL PATCH TD SCH (10:00)
[2021-05-24] MEDS: ASPirin-EC 81 mg tab PO SCH (10:00)
[2021-05-24] MEDS ORDERED: fentaNYL CITRATE 100 MCG/2 ML VL ONE (11:17)
[2021-05-24] MEDS ORDERED: MIDAZOLAM HCL 2MG/2ML 2ml VIAL (1mg/ml) ONE (11:17)
[2021-05-24] MEDS ORDERED: SODIUM CHL 0.9% 0 ML ONE (11:26)
[2021-05-24] MEDS ORDERED: LIDOCAINE 2%HCL (LOCAL ANESTH.) INJ 20ML MDV ONE (11:26)
[2021-05-24] MEDS ORDERED: ANGIOMAX 250 MG VIAL IV ONE (11:26)
[2021-05-24] MEDS ORDERED: IOHEXOL 350 MG/ML 100ML IJ ONE (11:26)
[2021-05-24] MEDS ORDERED: AMIO200T33 PO (14:45)
[2021-05-24] MEDS ORDERED: ATOR20TA50 PO (14:45)
[2021-05-24] MEDS: MORPHINE SULFATE INJECTION 2 MG/ML SYRG IV PRN (19:33)
[2021-05-24] MEDS: ATORVASTATIN 20 MG TAB PO SCH (21:15)
[2021-05-24 22:22] VITALS: BP 109/80
[2021-05-25 05:00] VITALS: BP 105/78
[2021-05-25] MEDS: FUROSEMIDE 20 MG/2 ML VIAL IV SCH ×2 (05:58→17:39)
[2021-05-25] MEDS: AMIODARONE HCL 200 MG TAB PO SCH ×3 (05:58→21:33)
[2021-05-25 08:05] LABS: INR 1.34 (0.9-1.15); Partial Thromboplastin Time 27.6 sec (23.6-33.0)
[2021-05-25 08:30] VITALS: BP 107/71
[2021-05-25] MEDS: ASPirin-EC 81 mg tab PO SCH (09:43)
[2021-05-25] MEDS: HYDROcodone-ACET 10/325MG TAB PO PRN ×2 (09:44→21:36)
[2021-05-25] MEDS: NICOTINE 14 MG/24HR TOPICAL PATCH TD SCH (09:50)
[2021-05-25 13:00] VITALS: BP 97/74
[2021-05-25] MEDS: ONDANSETRON HCL 4 MG/2 ML VIAL IV PRN (14:34)
[2021-05-25 16:30] VITALS: BP 113/79
[2021-05-25] MEDS: ATORVASTATIN 20 MG TAB PO SCH (21:32)
[2021-05-25 22:00] VITALS: BP 98/66
[2021-05-26 05:00] VITALS: BP 105/76
[2021-05-26] MEDS: FUROSEMIDE 20 MG/2 ML VIAL IV SCH (05:21)
[2021-05-26] MEDS: AMIODARONE HCL 200 MG TAB PO SCH ×2 (05:22→14:00)
[2021-05-26 09:00] VITALS: BP 95/68
[2021-05-26] MEDS: NICOTINE 14 MG/24HR TOPICAL PATCH TD SCH (09:28)
[2021-05-26] MEDS: ASPirin-EC 81 mg tab PO SCH (09:28)
[2021-05-26 13:12] VITALS: BP 95/72
== END 2021-05-26 14:00 | disposition home or self-care (01) | DRG 190 ==
LOC: ER 17:34 → TELE 05-22 00:20 → TELE-CENTR 05-22 21:07
PROVIDERS: ADMIT Hospitalist; ATTEND Hospitalist
PROC: 4A023N7 Measurement of Cardiac Sampling and Pressure, Left Heart, Percutaneous Approach (ICD-10-PCS; principal; 2021-05-24)
PROC: B211YZZ Fluoroscopy of Multiple Coronary Arteries using Other Contrast (ICD-10-PCS; 2021-05-24)
PROC: B215YZZ Fluoroscopy of Left Heart using Other Contrast (ICD-10-PCS; 2021-05-24)
PROC: B41JYZZ Fluoroscopy of Other Lower Arteries using Other Contrast (ICD-10-PCS; 2021-05-24)
DX: I21.4 Non-ST elevation (NSTEMI) myocardial infarction (principal); I50.31 Acute diastolic (congestive) heart failure; I42.0 Dilated cardiomyopathy; I49.5 Sick sinus syndrome; I48.91 Unspecified atrial fibrillation; E87.5 Hyperkalemia; E89.0 Postprocedural hypothyroidism; F17.210 Nicotine dependence, cigarettes, uncomplicated; I11.0 Hypertensive heart disease with heart failure; I25.10 Atherosclerotic heart disease of native coronary artery without angina pectoris; Z20.822 Contact with and (suspected) exposure to COVID-19; J44.9 Chronic obstructive pulmonary disease, unspecified; F32.A Depression, unspecified; F41.9 Anxiety disorder, unspecified; I42.9 Cardiomyopathy, unspecified; R53.81 Other malaise; F10.10 Alcohol abuse, uncomplicated; I25.2 Old myocardial infarction; Z82.3 Family history of stroke; Z80.0 Family history of malignant neoplasm of digestive organs; Z82.49 Family history of ischemic heart disease and other diseases of the circulatory system; Z83.3 Family history of diabetes mellitus; Z95.0 Presence of cardiac pacemaker
CPT/HCPCS: 36415; 36600; 71045; 75716; 80048; 80053; 80061; 81001; 82728; 82805; 83036; 83735; 83880; 84439; 84443; 84484; 85025; 85379; 85610; 85730; 86141; 86850; 86900; 86901; 87426; 93005; 93306; 93458; 96365; 96366; 96372; 96375; 99152; 99291; G0378; J2250; J2405; J7060

== ENCOUNTER 2021-06-22 12:45 | Observation (INO) | payer MEDICAID ==
[~2021-06-22] VITALS: Ht 180.3 cm; Wt 80.5 kg
[~2021-06-22 12:45] MED LIST changes: +ATOR20TA50 PO; -AZIT250T9 PO; -GAB100C PO; +QUET50TA PO
[2021-06-22] MEDS ORDERED: MORPHINE SULFATE 4 MG/ML SYR/VIAL IV ONE (14:15)
[2021-06-22 15:01] LABS: Basophils # (auto) 0.1 10 ^3/uL (0-0.2); Basophils % (auto) 1.2 % (0.0-2.0); Eosinophils # (auto) 0 10 ^3/uL (0-0.8); Eosinophils % (auto) 0.5 % (0.0-7.0); Hematocrit 42.8 % (36.0-46.0); Hemoglobin 14.1 g/dL (12.2-16.2); Lymphocytes # (auto) 1.3 10 ^3/uL (0.4-5.4); Lymphocytes % (auto) 19.3 % (10.0-50.0); Mean Corpuscular Hemoglobin 31.4 pg (28.0-32.0); Mean Corpuscular Hgb Conc. 32.8 g/dL (32.0-36.0); Mean Corpuscular Volume 95.7 fL (80.0-100.0); Monocytes # (auto) 0.4 10 ^3/uL (0-1.3); Monocytes % (auto) 5.9 % (0.0-12.0); Neutrophils # (auto) 4.9 10 ^3/uL (1.6-8.6); Neutrophils % (auto) 73.1 % (37.0-80.0); Red Blood Cells 4.48 10^6/uL (4.0-5.20); Red Cell Distribution Width 14.4 % (11.8-14.3); White Blood Cell 6.7 10^3/uL (4.4-10.8)
[2021-06-22 15:24] LABS: Albumin 3.7 g/dL (3.4-5.0); Calcium 8.7 mg/dL (8.5-10.1); Potassium 4.5 mmol/L (3.5-5.1)
[2021-06-22 15:30] LABS: BUN/Creatinine Ratio 17.1; Bilirubin, Total 0.8 mg/dL (0.2-1.0); Total Protein 7.5 g/dL (6.4-8.2)
[2021-06-22] MEDS ORDERED: ASPirin 325 MG TAB PO ONE (18:00)
[2021-06-22] MEDS ORDERED: ENOXAPARIN SOD 30 MG/0.3 ML SYRINGE IV ONE (18:00)
[2021-06-22] MEDS ORDERED: CLOPIDOGREL BISULFATE 75 MG TAB PO ONE (18:00)
[2021-06-22 20:22] LABS: Cholesterol 201 mg/dL (< 200); HDL Cholesterol 84 mg/dL (40-59); LDL Cholesterol 106 mg/dL (< 100); Triglycerides 85 mg/dL (< 150)
[2021-06-22] MEDS ORDERED: KETOROLAC TROMETH 30 MG/ML 1ML VIAL IV ONE (22:00)
[2021-06-22] MEDS: ENOXAPARIN SOD 80 MG/0.8ML SYRINGE SC SCH (22:43)
[2021-06-22] MEDS ORDERED: NITROGLYCERIN 0.4 MG SL TAB SL PRN (22:45)
[2021-06-22] MEDS ORDERED: DOCUSATE SOD 100 MG CAP PO PRN (22:45)
[2021-06-22] MEDS ORDERED: ONDANSETRON HCL 4 MG/2 ML VIAL IV PRN (22:45)
[2021-06-22 23:52] VITALS: BP 120/90
[2021-06-23] VITALS (8 sets, daily range): BP systolic 109–134; BP diastolic 59–90
[2021-06-23 00:10] LABS: INR 4.27 (0.9-1.15)
[2021-06-23 02:21] LABS: INR 3.84 (0.9-1.15)
[2021-06-23] MEDS ORDERED: TRAZ1TAB12 PO (05:37)
[2021-06-23] MEDS ORDERED: COUMPOW XX (05:53)
[2021-06-23] MEDS: MORPHINE SULFATE INJECTION 2 MG/ML SYRG IV PRN ×3 (07:44→23:45)
[2021-06-23 08:22] LABS: Basophils # (auto) 0.1 10 ^3/uL (0-0.2); Basophils % (auto) 1.3 % (0.0-2.0); Eosinophils # (auto) 0.1 10 ^3/uL (0-0.8); Hematocrit 44.2 % (36.0-46.0); Hemoglobin 14.3 g/dL (12.2-16.2); Lymphocytes # (auto) 1.4 10 ^3/uL (0.4-5.4); Lymphocytes % (auto) 24.1 % (10.0-50.0); Mean Corpuscular Hemoglobin 31.4 pg (28.0-32.0); Mean Corpuscular Hgb Conc. 32.3 g/dL (32.0-36.0); Mean Corpuscular Volume 97.1 fL (80.0-100.0); Monocytes # (auto) 0.5 10 ^3/uL (0-1.3); Monocytes % (auto) 9.2 % (0.0-12.0); Neutrophils # (auto) 3.8 10 ^3/uL (1.6-8.6); Neutrophils % (auto) 64.4 % (37.0-80.0); Nucleated Red Blood Cells % 0.1 %; Red Blood Cells 4.55 10^6/uL (4.0-5.20)
[2021-06-23 09:25] LABS: BUN/Creatinine Ratio 17.9; Calcium 8.6 mg/dL (8.5-10.1); Potassium 4.3 mmol/L (3.5-5.1)
[2021-06-23] MEDS: ENOXAPARIN SOD 80 MG/0.8ML SYRINGE SC SCH ×2 (10:19→22:54)
[2021-06-23] MEDS: METOPROLOL TARTRATE 25 MG TAB PO SCH ×2 (10:19→22:53)
[2021-06-23] MEDS: ATORVASTATIN 20 MG TAB PO SCH (10:19)
[2021-06-23] MEDS: LISINOPRIL 5 MG TAB PO SCH ×2 (10:20→22:54)
[2021-06-23] MEDS: AMIODARONE HCL 200 MG TAB PO SCH ×2 (10:21→22:54)
[2021-06-23] MEDS: FUROSEMIDE 20 MG/2 ML VIAL IV SCH (10:21)
[2021-06-23] MEDS: ASPirin-EC 81 mg tab PO SCH (10:23)
[2021-06-24 05:51] VITALS: BP 100/60
[2021-06-24 07:11] LABS: Basophils # (auto) 0.1 10 ^3/uL (0-0.2); Basophils % (auto) 2.2 % (0.0-2.0); Eosinophils # (auto) 0.1 10 ^3/uL (0-0.8); Eosinophils % (auto) 2.3 % (0.0-7.0); Hematocrit 41.6 % (36.0-46.0); Hemoglobin 13.9 g/dL (12.2-16.2); Lymphocytes # (auto) 1.7 10 ^3/uL (0.4-5.4); Mean Corpuscular Hgb Conc. 33.4 g/dL (32.0-36.0); Mean Corpuscular Volume 95.7 fL (80.0-100.0); Monocytes # (auto) 0.5 10 ^3/uL (0-1.3); Monocytes % (auto) 8.9 % (0.0-12.0); Neutrophils # (auto) 3.2 10 ^3/uL (1.6-8.6); Neutrophils % (auto) 56.6 % (37.0-80.0); Nucleated Red Blood Cells % 0.3 %; Red Blood Cells 4.35 10^6/uL (4.0-5.20); Red Cell Distribution Width 14.5 % (11.8-14.3); White Blood Cell 5.7 10^3/uL (4.4-10.8)
[2021-06-24 07:15] LABS: INR 3.08 (0.9-1.15)
[2021-06-24 09:16] VITALS: BP 99/64
[2021-06-24] MEDS: FUROSEMIDE 20 MG/2 ML VIAL IV SCH (10:00)
[2021-06-24] MEDS: METOPROLOL TARTRATE 25 MG TAB PO SCH (10:00)
[2021-06-24] MEDS: AMIODARONE HCL 200 MG TAB PO SCH (10:04)
[2021-06-24] MEDS: ATORVASTATIN 20 MG TAB PO SCH (10:04)
[2021-06-24] MEDS: ENOXAPARIN SOD 80 MG/0.8ML SYRINGE SC SCH (10:04)
[2021-06-24] MEDS: ASPirin-EC 81 mg tab PO SCH (10:04)
[2021-06-24] MEDS: LISINOPRIL 5 MG TAB PO SCH (10:08)
[2021-06-24 10:46] VITALS: BP 99/64
[2021-06-24 13:31] VITALS: BP 100/65
== END 2021-06-24 14:00 | disposition home or self-care (01) ==
LOC: EDBD 12:45 → ER 12:45 → TELE 22:40 → TELE-WESTW 23:22
PROVIDERS: ADMIT Hospitalist; ATTEND Hospitalist
DX: R07.89 Other chest pain (principal); Z20.822 Contact with and (suspected) exposure to COVID-19; I48.0 Paroxysmal atrial fibrillation; I11.0 Hypertensive heart disease with heart failure; I50.9 Heart failure, unspecified; I25.10 Atherosclerotic heart disease of native coronary artery without angina pectoris; E78.5 Hyperlipidemia, unspecified; G62.9 Polyneuropathy, unspecified; F31.9 Bipolar disorder, unspecified; F41.8 Other specified anxiety disorders; E78.00 Pure hypercholesterolemia, unspecified; I21.4 Non-ST elevation (NSTEMI) myocardial infarction; I42.0 Dilated cardiomyopathy; E89.0 Postprocedural hypothyroidism; F17.210 Nicotine dependence, cigarettes, uncomplicated; Z79.82 Long term (current) use of aspirin; Z79.899 Other long term (current) drug therapy
CPT/HCPCS: 36415; 71046; 80048; 80053; 80061; 83880; 84484; 85025; 85610; 87426; 93005; 96372; 96374; 96375; 96376; 99285; G0378; J1650; J1885; J1940; J2270

== ENCOUNTER 2021-07-10 10:15 | Day surgery (SDC) | payer MEDICAID ==
[~2021-07-10] VITALS: Ht 180.3 cm; Wt 77.1 kg
[~2021-07-10 10:15] MED LIST changes: -CITA20TA3 PO; -GABA100C9 PO; -LAMO200T34 PO; -MIRT1TAB38 PO; -MISC-573 XX; +NITR0.4S29 SL; +POTA-220 PO; -PROM2SYP2 PO; -QUET50TA PO; +WARF5TAB71 PO
[2021-07-10] MEDS ORDERED: VANCOMYCIN 1GM/250ML 250 ML IV ONE (12:31)
[2021-07-10] MEDS ORDERED: LIDOCAINE 2%HCL (LOCAL ANESTH.) INJ 20ML MDV ONE (12:36)
[2021-07-10] MEDS ORDERED: IOHEXOL 350 MG/ML 100ML IJ ONE (12:36)
[2021-07-10] MEDS ORDERED: fentaNYL CITRATE 100 MCG/2 ML VL ONE (12:43)
[2021-07-10] MEDS ORDERED: MIDAZOLAM HCL 2MG/2ML 2ml VIAL (1mg/ml) ONE (12:43)
[2021-07-10] MEDS ORDERED: VANCOMYCIN HCL 1000 MG VL ONE (12:47)
[2021-07-10] MEDS ORDERED: EPINEPHrine HCL 1 MG/1 ML AMP ONE (14:08)
== END 2021-07-10 15:40 | disposition home or self-care (01) ==
LOC: CATH 10:15
PROVIDERS: ATTEND Internal Medicine Cardiovascular Disease
DX: I42.0 Dilated cardiomyopathy (principal); I11.0 Hypertensive heart disease with heart failure; I50.22 Chronic systolic (congestive) heart failure; I20.9 Angina pectoris, unspecified; E78.5 Hyperlipidemia, unspecified; J44.9 Chronic obstructive pulmonary disease, unspecified; F17.200 Nicotine dependence, unspecified, uncomplicated; F41.9 Anxiety disorder, unspecified; F32.9 Major depressive disorder, single episode, unspecified; Z82.49 Family history of ischemic heart disease and other diseases of the circulatory system; Z82.5 Family history of asthma and other chronic lower respiratory diseases; Z98.51 Tubal ligation status; Z83.3 Family history of diabetes mellitus; Z82.61 Family history of arthritis; Z20.822 Contact with and (suspected) exposure to COVID-19
CPT/HCPCS: 33249; C1769; C1882; J0171; J2250; J3010; J3370; J7030; Q9967; U0003; 99152; 99153

== ENCOUNTER 2022-03-10 11:08 | Inpatient (IN) | payer MEDICAID ==
[~2022-03-10] VITALS: Ht 180.3 cm; Wt 107.5 kg
[2022-03-10 12:03] LABS: Albumin 3.6 g/dL (3.4-5.0); BUN/Creatinine Ratio 23.2; Calcium 8.9 mg/dL (8.5-10.1); Magnesium 1.9 mg/dL (1.6-2.6); Potassium 4.8 mmol/L (3.5-5.1)
[2022-03-10 12:06] LABS: Bilirubin, Total 2.9 mg/dL (0.2-1.0); Total Protein 6.8 g/dL (6.4-8.2)
[2022-03-10 12:08] LABS: Basophils # (auto) 0.1 10 ^3/uL (0-0.2); Eosinophils # (auto) 0.1 10 ^3/uL (0-0.8); Hemoglobin 14.4 g/dL (12.2-16.2); Lymphocytes # (auto) 1.3 10 ^3/uL (0.4-5.4); Lymphocytes % (auto) 25.9 % (10.0-50.0); Mean Corpuscular Hemoglobin 31.1 pg (28.0-32.0); Monocytes # (auto) 0.6 10 ^3/uL (0-1.3); Monocytes % (auto) 11.3 % (0.0-12.0); Neutrophils % (auto) 59.8 % (37.0-80.0); Nucleated Red Blood Cells % 0.3 %; Red Blood Cells 4.63 10^6/uL (4.0-5.20); Red Cell Distribution Width 17.5 % (11.8-14.3)
[2022-03-10 12:23] LABS: INR 1.29 (0.9-1.15); Partial Thromboplastin Time 26.6 sec (24.6-33.4)
[2022-03-10] MEDS: MAGNESIUM SULFATE 1GM/100ML 100 ML IV SCH ×2 (15:47→17:48)
[2022-03-10] MEDS ORDERED: ONDANSETRON HCL 4 MG/2 ML VIAL IV ONE (16:15)
[2022-03-10] MEDS ORDERED: MORPHINE SULFATE INJ 2 MG/ml SYRG IV ONE (16:15)
[2022-03-10] MEDS ORDERED: AMIODARONE HCL 150 MG in D5W 5% 100 ML IV ONE (17:45)
[2022-03-10] MEDS ORDERED: AMIODARONE 450mg/250ml AE 250 ML IV SCH (17:45)
[2022-03-10] MEDS ORDERED: MORPHINE SULFATE INJ 2 MG/ml SYRG IV PRN (18:15)
[2022-03-10] MEDS ORDERED: DOCUSATE SOD 100 MG CAP PO PRN (18:15)
[2022-03-10] MEDS ORDERED: NITROGLYCERIN 0.4 MG SL TAB SL PRN (18:15)
[2022-03-10] MEDS ORDERED: APIX5TAB PO (18:35)
[2022-03-10] MEDS: HYDROcodone-ACET 5/325MG TAB PO PRN (20:31)
[2022-03-11] MEDS: HYDROcodone-ACET 5/325MG TAB PO PRN ×3 (01:20→17:33)
[2022-03-11] MEDS: AMIODARONE 450mg/250ml AE 250 ML IV SCH ×2 (01:35→15:12)
[2022-03-11] MEDS: ONDANSETRON HCL 4 MG/2 ML VIAL IV PRN ×3 (03:02→17:33)
[2022-03-11 05:00] VITALS: BP 80/58
[2022-03-11 06:22] LABS: BUN/Creatinine Ratio 18.6
[2022-03-11 06:37] LABS: Basophils # (auto) 0 10 ^3/uL (0-0.2); Basophils % (auto) 0.4 % (0.0-2.0); Eosinophils # (auto) 0 10 ^3/uL (0-0.8); Eosinophils % (auto) 0.2 % (0.0-7.0); Hematocrit 49.5 % (36.0-46.0); Hemoglobin 15.4 g/dL (12.2-16.2); Lymphocytes # (auto) 0.9 10 ^3/uL (0.4-5.4); Lymphocytes % (auto) 14.8 % (10.0-50.0); Mean Corpuscular Hemoglobin 31.5 pg (28.0-32.0); Mean Corpuscular Hgb Conc. 31.1 g/dL (32.0-36.0); Mean Corpuscular Volume 101.2 fL (80.0-100.0); Monocytes # (auto) 0.8 10 ^3/uL (0-1.3); Monocytes % (auto) 13.4 % (0.0-12.0); Neutrophils # (auto) 4.1 10 ^3/uL (1.6-8.6); Neutrophils % (auto) 71.2 % (37.0-80.0); Nucleated Red Blood Cells % 0.4 %; Red Blood Cells 4.89 10^6/uL (4.0-5.20); Red Cell Distribution Width 18.2 % (11.8-14.3); White Blood Cell 5.8 10^3/uL (4.4-10.8)
[2022-03-11] MEDS ORDERED: DEXTROSE (50%) 50ML SYRG IV ONE (08:45)
[2022-03-11] MEDS ORDERED: SODIUM BICARBONATE 8.4% INJ 50ML SYRINGE IV ONE (08:45)
[2022-03-11] MEDS ORDERED: InsuLIN REG 1unit/0.01ml Soln (100units/ml) IV ONE (08:45)
[2022-03-11] MEDS ORDERED: ALBUTEROL SULF 2.5 MG/0.5ML(0.5%) NEB SOLN NEB ONE (08:45)
[2022-03-11 09:00] VITALS: BP 86/57
[2022-03-11] MEDS: ASPirin-EC 81 mg tab PO SCH (09:20)
[2022-03-11] MEDS: ATORVASTATIN 20 MG TAB PO SCH (09:20)
[2022-03-11 13:00] VITALS: BP 121/89
[2022-03-11 13:52] LABS: BUN/Creatinine Ratio 16.1; Calcium 8.9 mg/dL (8.5-10.1); Potassium 4.7 mmol/L (3.5-5.1)
[2022-03-11 17:00] VITALS: BP 98/79
[2022-03-11 22:00] VITALS: BP 103/63
[2022-03-12] MEDS: HYDROcodone-ACET 5/325MG TAB PO PRN ×4 (00:38→20:19)
[2022-03-12] MEDS: ONDANSETRON HCL 4 MG/2 ML VIAL IV PRN ×3 (00:38→21:19)
[2022-03-12 05:00] VITALS: BP 115/80
[2022-03-12] MEDS: AMIODARONE 450mg/250ml AE 250 ML IV SCH (06:20)
[2022-03-12 08:00] VITALS: BP 89/67
[2022-03-12] MEDS: ASPirin-EC 81 mg tab PO SCH (09:04)
[2022-03-12] MEDS: ATORVASTATIN 20 MG TAB PO SCH (09:04)
[2022-03-12] MEDS ORDERED: SODIUM CHLORIDE 0.9% 1,000 ML IV SCH ×2 (11:00→11:30)
[2022-03-12 11:40] LABS: Urine Amorphous Crystal FEW /hpf (None Seen); Urine Bacteria FEW /hpf (None Seen); Urine Blood Negative /uL (Negative); Urine Hyaline Cast MOD /lpf (0 - 2); Urine Mucus FEW (None Seen); Urine Specific Gravity 1.022 (1.001-1.035); Urine WBC 21 /hpf (0 - 5)
[2022-03-12 13:00] VITALS: BP 100/73
[2022-03-12] MEDS: chlordiazePOXIDE HCL 5 MG CAP PO SCH ×2 (14:04→21:16)
[2022-03-12 14:13] VITALS: BP 102/69
[2022-03-12 17:00] VITALS: BP 106/83
[2022-03-12] MEDS: AMIODARONE HCL 200 MG TAB PO SCH (21:17)
[2022-03-12 22:00] VITALS: BP 100/73
[2022-03-13] VITALS (7 sets, daily range): BP systolic 88–113; BP diastolic 58–87
[2022-03-13] MEDS: ONDANSETRON HCL 4 MG/2 ML VIAL IV PRN ×4 (01:57→16:37)
[2022-03-13] MEDS: HYDROcodone-ACET 5/325MG TAB PO PRN ×5 (02:02→20:20)
[2022-03-13] MEDS: chlordiazePOXIDE HCL 5 MG CAP PO SCH ×3 (06:09→21:23)
[2022-03-13 06:42] LABS: Basophils # (auto) 0.1 10 ^3/uL (0-0.2); Basophils % (auto) 1.3 % (0.0-2.0); Eosinophils # (auto) 0.1 10 ^3/uL (0-0.8); Eosinophils % (auto) 1.5 % (0.0-7.0); Hemoglobin 15.7 g/dL (12.2-16.2); Lymphocytes # (auto) 1.6 10 ^3/uL (0.4-5.4); Lymphocytes % (auto) 20.2 % (10.0-50.0); Mean Corpuscular Hemoglobin 32.5 pg (28.0-32.0); Mean Corpuscular Hgb Conc. 33.4 g/dL (32.0-36.0); Mean Corpuscular Volume 97.3 fL (80.0-100.0); Monocytes # (auto) 0.9 10 ^3/uL (0-1.3); Monocytes % (auto) 12.1 % (0.0-12.0); Neutrophils % (auto) 64.9 % (37.0-80.0); Nucleated Red Blood Cells % 0.3 %; Red Blood Cells 4.83 10^6/uL (4.0-5.20); Red Cell Distribution Width 17.6 % (11.8-14.3); White Blood Cell 7.8 10^3/uL (4.4-10.8)
[2022-03-13 06:58] LABS: Potassium 5.1 mmol/L (3.5-5.1)
[2022-03-13 07:02] LABS: BUN/Creatinine Ratio 19.9; Calcium 8.8 mg/dL (8.5-10.1)
[2022-03-13] MEDS: ATORVASTATIN 20 MG TAB PO SCH (10:30)
[2022-03-13] MEDS: ASPirin-EC 81 mg tab PO SCH (10:30)
[2022-03-13] MEDS: AMIODARONE HCL 200 MG TAB PO SCH ×2 (10:30→21:22)
[2022-03-13] MEDS: IPRATROPIUM BROM 0.5 MG/2.5ML INH SOL NEB PRN (15:35)
[2022-03-13] MEDS ORDERED: OMNIPAQUE ORAL SOLN 500ml 12mg/ml PO ONE (16:20)
[2022-03-13] MEDS: PROMETHAZINE HCL 25 MG/ML 1ML IV PRN (20:19)
[2022-03-14] MEDS: HYDROcodone-ACET 5/325MG TAB PO PRN ×3 (00:47→21:45)
[2022-03-14] MEDS: PROMETHAZINE HCL 25 MG/ML 1ML IV PRN ×2 (02:49→21:48)
[2022-03-14 04:41] VITALS: BP 105/64
[2022-03-14] MEDS: chlordiazePOXIDE HCL 5 MG CAP PO SCH ×3 (05:49→23:00)
[2022-03-14] MEDS: IPRATROPIUM BROM 0.5 MG/2.5ML INH SOL NEB PRN (07:10)
[2022-03-14] MEDS ORDERED: METOPROLOL SUCCINATE XL 50 MG TAB PO ONE (08:30)
[2022-03-14 08:39] LABS: Basophils # (auto) 0.1 10 ^3/uL (0-0.2); Basophils % (auto) 0.8 % (0.0-2.0); Eosinophils # (auto) 0 10 ^3/uL (0-0.8); Eosinophils % (auto) 0.6 % (0.0-7.0); Hematocrit 47.1 % (36.0-46.0); Lymphocytes # (auto) 1.2 10 ^3/uL (0.4-5.4); Lymphocytes % (auto) 13.9 % (10.0-50.0); Mean Corpuscular Hemoglobin 31.3 pg (28.0-32.0); Mean Corpuscular Hgb Conc. 31.9 g/dL (32.0-36.0); Mean Corpuscular Volume 98.1 fL (80.0-100.0); Monocytes % (auto) 11.9 % (0.0-12.0); Neutrophils # (auto) 6.2 10 ^3/uL (1.6-8.6); Neutrophils % (auto) 72.8 % (37.0-80.0); Nucleated Red Blood Cells % 0.3 %; Red Blood Cells 4.79 10^6/uL (4.0-5.20); Red Cell Distribution Width 17.9 % (11.8-14.3); White Blood Cell 8.5 10^3/uL (4.4-10.8)
[2022-03-14] MEDS ORDERED: TRAZ1TAB12 PO (08:43)
[2022-03-14] MEDS: AMIODARONE HCL 200 MG TAB PO SCH (08:44)
[2022-03-14] MEDS: ASPirin-EC 81 mg tab PO SCH (08:45)
[2022-03-14] MEDS: ATORVASTATIN 20 MG TAB PO SCH (08:45)
[2022-03-14 08:56] LABS: Calcium 8.4 mg/dL (8.5-10.1); Potassium 5.4 mmol/L (3.5-5.1)
[2022-03-14 08:58] LABS: BUN/Creatinine Ratio 24.1
[2022-03-14 09:00] VITALS: BP 122/91
[2022-03-14] MEDS ORDERED: METOPROLOL SUCCINATE XL 50 MG TAB PO SCH ×2 (10:00)
[2022-03-14] MEDS ORDERED: DIGOXIN (250MCG/ML) 2 ML AMPULE IV ONE (12:00)
[2022-03-14 12:14] LABS: Anion Gap 13 (5-15); BUN/Creatinine Ratio 23.5; Blood Urea Nitrogen 47 mg/dL (7-18); Calcium 8.4 mg/dL (8.5-10.1); Carbon Dioxide 16 mmol/L (21-32); Chloride 101 mmol/L (98-107); GFR African American 33 mL/min; GFR Non-African American 27 mL/min; Glucose 73 mg/dL (74-106); Magnesium 2.6 mg/dL (1.6-2.6); Potassium 5.5 mmol/L (3.5-5.1); Sodium 130 mmol/L (136-145)
[2022-03-14] MEDS ORDERED: SODIUM ZIRCONIUM CYCL 10 GM PAK PO ONE (12:30)
[2022-03-14 13:00] VITALS: BP 116/88
[2022-03-14] MEDS ORDERED: SOTALOL HCL 80 MG TAB PO ONE (15:30)
[2022-03-14] MEDS ORDERED: MAGNESIUM CITRATE SOLUTION 300 ML BTL NG ONE (16:15)
[2022-03-14 16:27] VITALS: BP 103/81
[2022-03-14] MEDS: SOTALOL HCL 80 MG TAB PO SCH (21:47)
[2022-03-14 22:00] VITALS: BP 120/52
[2022-03-14] MEDS ORDERED: traZODone HCL 50 MG TAB PO SCH (22:00)
[2022-03-14] MEDS ORDERED: APIXABAN 2.5 MG TAB PO SCH (22:00)
[2022-03-15 05:00] VITALS: BP 104/79
[2022-03-15 07:51] LABS: BUN/Creatinine Ratio 28.6; Calcium 8.1 mg/dL (8.5-10.1)
[2022-03-15 07:54] LABS: Potassium 5.6 mmol/L (3.5-5.1)
[2022-03-15 09:00] VITALS: BP_SYST 130; BP_SYST 99; BP_DIAS 51; BP_DIAS 72
[2022-03-15] MEDS ORDERED: SODIUM ZIRCONIUM CYCL 10 GM PAK PO ONE ×2 (09:45→11:15)
[2022-03-15] MEDS ORDERED: ALBUMIN 25% 100 ML IV SCH (09:45)
[2022-03-15] MEDS: SOTALOL HCL 80 MG TAB PO SCH ×3 (10:22→22:17)
[2022-03-15] MEDS: ASPirin-EC 81 mg tab PO SCH (10:23)
[2022-03-15] MEDS: DIGOXIN 0.125 MG TAB PO SCH (10:23)
[2022-03-15] MEDS: ATORVASTATIN 20 MG TAB PO SCH (10:23)
[2022-03-15] MEDS ORDERED: chlordiazePOXIDE HCL 5 MG CAP PO ONE ×2 (10:30→11:15)
[2022-03-15] MEDS ORDERED: DEXTROSE (50%) 50ML SYRG IV ONE ×2 (11:00→13:00)
[2022-03-15] MEDS ORDERED: ALBUTEROL SULF 2.5 MG/0.5ML(0.5%) NEB SOLN NEB ONE (11:00)
[2022-03-15] MEDS ORDERED: InsuLIN REG 1unit/0.01ml Soln (100units/ml) IV ONE ×2 (11:00→13:00)
[2022-03-15] MEDS ORDERED: CALCIUM GLUC 1,000mg/50ml-NS 50 ML IV ONE ×2 (11:00→13:00)
[2022-03-15 11:34] LABS: INR 1.99 (0.9-1.15); Partial Thromboplastin Time 34.1 sec (24.6-33.4)
[2022-03-15 11:55] VITALS: BP 99/72
[2022-03-15] MEDS: ALBUMIN 25% 100 ML IV SCH ×2 (13:44→19:46)
[2022-03-15] MEDS: SODIUM ZIRCONIUM CYCL 10 GM PAK PO SCH ×2 (15:22→22:18)
[2022-03-15 17:11] VITALS: BP 141/70
[2022-03-15 22:00] VITALS: BP 146/47
[2022-03-15 22:13] LABS: Anion Gap 12 (5-15); BUN/Creatinine Ratio 26.6; Blood Urea Nitrogen 53 mg/dL (7-18); Calcium 8.4 mg/dL (8.5-10.1); Carbon Dioxide 19 mmol/L (21-32); Chloride 98 mmol/L (98-107); GFR African American 33 mL/min; GFR Non-African American 27 mL/min; Glucose 72 mg/dL (74-106); Sodium 129 mmol/L (136-145)
[2022-03-15 22:15] LABS: Potassium 6.1 mmol/L (3.5-5.1)
[2022-03-15] MEDS: traZODone HCL 50 MG TAB PO SCH (22:18)
[2022-03-15] MEDS: MAGNESIUM OXIDE 400 MG TAB PO SCH (22:18)
[2022-03-15] MEDS: PROMETHAZINE HCL 25 MG/ML 1ML IV PRN (22:37)
[2022-03-16] MEDS ORDERED: InsuLIN REG 1unit/0.01ml Soln (100units/ml) IV ONE ×3 (00:30→10:45)
[2022-03-16] MEDS ORDERED: ALBUTEROL SULF 2.5 MG/0.5ML(0.5%) NEB SOLN NEB ONE ×2 (00:30→09:45)
[2022-03-16] MEDS ORDERED: DEXTROSE (25%) 10 ML SYRG IV ONE (00:30)
[2022-03-16] MEDS ORDERED: CALCIUM GLUC 1,000mg/50ml-NS 50 ML IV ONE ×2 (00:30→09:45)
[2022-03-16] MEDS ORDERED: ALBUTEROL SULF 2.5 MG/0.5ML(0.5%) NEB SOLN ONE (00:51)
[2022-03-16] MEDS ORDERED: DEXTROSE (50%) 50ML SYRG IV ONE ×3 (01:15→10:45)
[2022-03-16] MEDS: ALBUMIN 25% 100 ML IV SCH (03:42)
[2022-03-16 05:00] VITALS: BP 132/48
[2022-03-16 06:06] LABS: Basophils # (auto) 0 10 ^3/uL (0-0.2); Basophils % (auto) 0.5 % (0.0-2.0); Eosinophils # (auto) 0 10 ^3/uL (0-0.8); Eosinophils % (auto) 0.3 % (0.0-7.0); Hematocrit 45.5 % (36.0-46.0); Hemoglobin 14.6 g/dL (12.2-16.2); Lymphocytes # (auto) 0.6 10 ^3/uL (0.4-5.4); Lymphocytes % (auto) 9.1 % (10.0-50.0); Mean Corpuscular Volume 96.9 fL (80.0-100.0); Monocytes # (auto) 0.7 10 ^3/uL (0-1.3); Monocytes % (auto) 9.9 % (0.0-12.0); Neutrophils # (auto) 5.5 10 ^3/uL (1.6-8.6); Neutrophils % (auto) 80.2 % (37.0-80.0); Nucleated Red Blood Cells % 1.1 %; Red Cell Distribution Width 17.7 % (11.8-14.3); White Blood Cell 6.9 10^3/uL (4.4-10.8)
[2022-03-16 06:21] LABS: Potassium 5.4 mmol/L (3.5-5.1)
[2022-03-16 06:27] LABS: Albumin 4.2 g/dL (3.4-5.0); Calcium 8.8 mg/dL (8.5-10.1)
[2022-03-16] MEDS: SODIUM ZIRCONIUM CYCL 10 GM PAK PO SCH ×3 (06:30→21:51)
[2022-03-16] MEDS: chlordiazePOXIDE HCL 5 MG CAP PO SCH (06:31)
[2022-03-16 06:36] LABS: Bilirubin, Total 4.1 mg/dL (0.2-1.0); Total Protein 6.6 g/dL (6.4-8.2)
[2022-03-16] MEDS: HYDROcodone-ACET 5/325MG TAB PO PRN (06:43)
[2022-03-16 08:40] VITALS: BP_SYST 89; BP_SYST 99; BP_DIAS 60; BP_DIAS 71
[2022-03-16] MEDS: SOTALOL HCL 80 MG TAB PO SCH (10:57)
[2022-03-16] MEDS: ASPirin-EC 81 mg tab PO SCH (11:32)
[2022-03-16] MEDS: ATORVASTATIN 20 MG TAB PO SCH (11:32)
[2022-03-16] MEDS: MAGNESIUM OXIDE 400 MG TAB PO SCH ×2 (11:33→21:52)
[2022-03-16] MEDS: DIGOXIN 0.125 MG TAB PO SCH (11:37)
[2022-03-16 12:30] VITALS: BP 82/58
[2022-03-16 17:00] VITALS: BP 84/65
[2022-03-16] MEDS: Ensure Pudding Vanilla 4 oz Cup PO SCH (18:00)
[2022-03-16] MEDS: Ensure HIGH Protein Chocolate 8oz Bottle PO SCH (18:00)
[2022-03-16] MEDS: MIDODRINE HCL 10 MG TAB PO SCH (18:32)
[2022-03-16] MEDS: IPRATROPIUM BROM 0.5 MG/2.5ML INH SOL NEB PRN (21:25)
[2022-03-16] MEDS: traZODone HCL 50 MG TAB PO SCH (21:51)
[2022-03-16 22:00] VITALS: BP 91/68
[2022-03-16] MEDS ORDERED: SOTALOL HCL 80 MG TAB PO SCH (22:00)
[2022-03-17 05:00] VITALS: BP 92/58
[2022-03-17 06:01] LABS: Albumin 3.2 g/dL (3.4-5.0); BUN/Creatinine Ratio 32.8; Calcium 8.2 mg/dL (8.5-10.1); Magnesium 1.9 mg/dL (1.6-2.6); Potassium 4.5 mmol/L (3.5-5.1)
[2022-03-17 06:03] LABS: Bilirubin, Total 2.9 mg/dL (0.2-1.0); Total Protein 5.5 g/dL (6.4-8.2)
[2022-03-17 06:07] LABS: Bilirubin, Direct 1.9 mg/dL (0-0.2)
[2022-03-17] MEDS: SODIUM ZIRCONIUM CYCL 10 GM PAK PO SCH ×3 (06:07→22:25)
[2022-03-17] MEDS: MIDODRINE HCL 10 MG TAB PO SCH ×3 (06:07→18:29)
[2022-03-17] MEDS: chlordiazePOXIDE HCL 5 MG CAP PO SCH (06:20)
[2022-03-17 08:03] VITALS: BP 101/76
[2022-03-17] MEDS: SOTALOL HCL 80 MG TAB PO SCH (10:04)
[2022-03-17] MEDS: ASPirin-EC 81 mg tab PO SCH (10:04)
[2022-03-17] MEDS: MAGNESIUM OXIDE 400 MG TAB PO SCH ×2 (10:05→22:25)
[2022-03-17] MEDS: ATORVASTATIN 20 MG TAB PO SCH (10:05)
[2022-03-17] MEDS: IPRATROPIUM BROM 0.5 MG/2.5ML INH SOL NEB PRN (10:24)
[2022-03-17] MEDS: Ensure HIGH Protein Chocolate 8oz Bottle PO SCH ×3 (10:57→18:29)
[2022-03-17] MEDS: Ensure Pudding Vanilla 4 oz Cup PO SCH ×3 (10:57→18:29)
[2022-03-17 13:00] VITALS: BP 108/61
[2022-03-17] MEDS: LACTULOSE 20Gm/30ML SOLN PO PRN (16:08)
[2022-03-17 16:59] VITALS: BP 160/81
[2022-03-17 22:00] VITALS: BP 107/85
[2022-03-17] MEDS: traZODone HCL 50 MG TAB PO SCH (22:25)
[2022-03-18] VITALS (7 sets, daily range): BP systolic 90–117; BP diastolic 62–79
[2022-03-18] MEDS: HYDROcodone-ACET 5/325MG TAB PO PRN ×4 (03:51→22:27)
[2022-03-18] MEDS: SODIUM ZIRCONIUM CYCL 10 GM PAK PO SCH (05:53)
[2022-03-18] MEDS: MIDODRINE HCL 10 MG TAB PO SCH ×3 (05:54→18:00)
[2022-03-18] MEDS: chlordiazePOXIDE HCL 5 MG CAP PO SCH (06:32)
[2022-03-18] MEDS: IPRATROPIUM BROM 0.5 MG/2.5ML INH SOL NEB PRN ×2 (07:13→22:56)
[2022-03-18] MEDS: Ensure Pudding Vanilla 4 oz Cup PO SCH ×3 (08:06→18:28)
[2022-03-18] MEDS: Ensure HIGH Protein Chocolate 8oz Bottle PO SCH ×3 (08:06→18:27)
[2022-03-18] MEDS: MAGNESIUM OXIDE 400 MG TAB PO SCH ×2 (10:25→22:27)
[2022-03-18] MEDS: ASPirin-EC 81 mg tab PO SCH (10:25)
[2022-03-18] MEDS: SOTALOL HCL 80 MG TAB PO SCH (10:25)
[2022-03-18] MEDS: ATORVASTATIN 20 MG TAB PO SCH (10:25)
[2022-03-18] MEDS: traZODone HCL 50 MG TAB PO SCH (22:27)
[2022-03-19] MEDS: HYDROcodone-ACET 5/325MG TAB PO PRN ×4 (05:00→21:56)
[2022-03-19 05:27] VITALS: BP 111/66
[2022-03-19] MEDS: chlordiazePOXIDE HCL 5 MG CAP PO SCH (06:26)
[2022-03-19] MEDS: MIDODRINE HCL 10 MG TAB PO SCH ×3 (06:32→17:50)
[2022-03-19 06:35] LABS: BUN/Creatinine Ratio 30.4; Calcium 8.4 mg/dL (8.5-10.1); Potassium 4.3 mmol/L (3.5-5.1)
[2022-03-19 07:30] VITALS: BP 92/64
[2022-03-19] MEDS: Ensure Pudding Vanilla 4 oz Cup PO SCH ×3 (08:13→17:49)
[2022-03-19] MEDS: Ensure HIGH Protein Chocolate 8oz Bottle PO SCH ×3 (08:13→17:49)
[2022-03-19 09:00] VITALS: BP 92/64
[2022-03-19] MEDS: SOTALOL HCL 80 MG TAB PO SCH ×2 (09:12→18:05)
[2022-03-19] MEDS: ASPirin-EC 81 mg tab PO SCH (09:12)
[2022-03-19] MEDS: ATORVASTATIN 20 MG TAB PO SCH (09:12)
[2022-03-19] MEDS: MAGNESIUM OXIDE 400 MG TAB PO SCH ×2 (09:12→21:56)
[2022-03-19] MEDS: IPRATROPIUM BROM 0.5 MG/2.5ML INH SOL NEB PRN ×3 (10:38→22:44)
[2022-03-19 11:30] LABS: INR 1.33 (0.9-1.15)
[2022-03-19 13:00] VITALS: BP 99/60
[2022-03-19 16:21] VITALS: BP 112/82
[2022-03-19] MEDS: LACTULOSE 20Gm/30ML SOLN PO PRN (20:50)
[2022-03-19] MEDS: traZODone HCL 50 MG TAB PO SCH (21:56)
[2022-03-19 22:00] VITALS: BP 115/83
[2022-03-20] MEDS: HYDROcodone-ACET 5/325MG TAB PO PRN ×2 (02:19→21:21)
[2022-03-20 05:00] VITALS: BP 104/64
[2022-03-20] MEDS: IPRATROPIUM BROM 0.5 MG/2.5ML INH SOL NEB PRN ×4 (06:37→18:36)
[2022-03-20] MEDS: MIDODRINE HCL 10 MG TAB PO SCH ×3 (06:52→18:18)
[2022-03-20] MEDS: chlordiazePOXIDE HCL 5 MG CAP PO SCH (06:53)
[2022-03-20 06:55] LABS: Bilirubin, Direct 1.3 mg/dL (0-0.2)
[2022-03-20 06:58] LABS: Total Protein 6.1 g/dL (6.4-8.2)
[2022-03-20] MEDS: Ensure HIGH Protein Chocolate 8oz Bottle PO SCH ×3 (07:57→18:18)
[2022-03-20] MEDS: Ensure Pudding Vanilla 4 oz Cup PO SCH ×3 (07:57→18:18)
[2022-03-20 08:30] VITALS: BP 119/73
[2022-03-20 09:00] VITALS: BP 119/73
[2022-03-20] MEDS: SOTALOL HCL 80 MG TAB PO SCH (09:49)
[2022-03-20] MEDS: ATORVASTATIN 20 MG TAB PO SCH (09:49)
[2022-03-20] MEDS: ASPirin-EC 81 mg tab PO SCH (09:49)
[2022-03-20] MEDS: MAGNESIUM OXIDE 400 MG TAB PO SCH ×2 (09:49→21:21)
[2022-03-20 13:00] VITALS: BP 95/66
[2022-03-20 17:00] VITALS: BP 106/73
[2022-03-20] MEDS: traZODone HCL 50 MG TAB PO SCH (21:21)
[2022-03-20 21:47] VITALS: BP 113/80
[2022-03-21] MEDS: IPRATROPIUM BROM 0.5 MG/2.5ML INH SOL NEB PRN ×3 (00:39→12:09)
[2022-03-21] MEDS ORDERED: diphenhdrAMINE HCL 50 MG/1 ML VL IV PRN (03:00)
[2022-03-21 04:54] VITALS: BP 108/86
[2022-03-21 05:35] LABS: Potassium 4.4 mmol/L (3.5-5.1)
[2022-03-21 05:43] LABS: Albumin 2.8 g/dL (3.4-5.0); BUN/Creatinine Ratio 29.9; Calcium 8.3 mg/dL (8.5-10.1); Magnesium 1.7 mg/dL (1.6-2.6)
[2022-03-21 05:52] LABS: Total Protein 5.7 g/dL (6.4-8.2)
[2022-03-21 05:53] LABS: Basophils # (auto) 0.1 10 ^3/uL (0-0.2); Basophils % (auto) 1.1 % (0.0-2.0); Eosinophils # (auto) 0.2 10 ^3/uL (0-0.8); Eosinophils % (auto) 3.8 % (0.0-7.0); Hematocrit 42.5 % (36.0-46.0); Hemoglobin 13.9 g/dL (12.2-16.2); Lymphocytes % (auto) 14.9 % (10.0-50.0); Mean Corpuscular Hemoglobin 31.2 pg (28.0-32.0); Mean Corpuscular Hgb Conc. 32.6 g/dL (32.0-36.0); Mean Corpuscular Volume 95.5 fL (80.0-100.0); Monocytes % (auto) 15.1 % (0.0-12.0); Neutrophils # (auto) 4.2 10 ^3/uL (1.6-8.6); Neutrophils % (auto) 65.1 % (37.0-80.0); Nucleated Red Blood Cells % 0.2 %; Red Blood Cells 4.45 10^6/uL (4.0-5.20); Red Cell Distribution Width 17.9 % (11.8-14.3); White Blood Cell 6.4 10^3/uL (4.4-10.8)
[2022-03-21 06:10] LABS: Bilirubin, Direct 1.2 mg/dL (0-0.2)
[2022-03-21] MEDS: chlordiazePOXIDE HCL 5 MG CAP PO SCH (06:28)
[2022-03-21] MEDS: MIDODRINE HCL 10 MG TAB PO SCH ×3 (06:28→18:00)
[2022-03-21] MEDS: Ensure HIGH Protein Chocolate 8oz Bottle PO SCH ×3 (07:44→17:30)
[2022-03-21] MEDS: Ensure Pudding Vanilla 4 oz Cup PO SCH ×3 (07:44→17:30)
[2022-03-21] MEDS: ASPirin-EC 81 mg tab PO SCH (08:39)
[2022-03-21] MEDS: MAGNESIUM OXIDE 400 MG TAB PO SCH (08:39)
[2022-03-21] MEDS: ATORVASTATIN 20 MG TAB PO SCH (08:39)
[2022-03-21] MEDS: SOTALOL HCL 80 MG TAB PO SCH (08:40)
[2022-03-21] MEDS: HYDROcodone-ACET 5/325MG TAB PO PRN ×2 (08:41→14:14)
[2022-03-21 09:00] VITALS: BP 127/76
[2022-03-21] MEDS ORDERED: FUROSEMIDE 100 MG/10ML VIAL IV ONE (12:30)
[2022-03-21 13:00] VITALS: BP 100/71
[2022-03-21] MEDS ORDERED: MID10T PO (13:26)
[2022-03-21] MEDS ORDERED: SOTA80TA20 PO (13:26)
[2022-03-21] MEDS ORDERED: LACT10SO3 PO (13:26)
[2022-03-21] MEDS ORDERED: FURO1TAB31 PO (13:27)
== END 2022-03-21 19:35 | disposition home health service (06) | DRG 133 ==
LOC: ER 11:08 → TELE 18:06 → UNDOADMIN 18:06 → TELE 18:35 → TELE-WESTW 23:21
PROVIDERS: ADMIT Nurse Practitioner Family; ATTEND Hospitalist
PROC: 05HB33Z Insertion of Infusion Device into Right Basilic Vein, Percutaneous Approach (ICD-10-PCS; 2022-03-13)
PROC: B54MZZA Ultrasonography of Right Upper Extremity Veins, Guidance (ICD-10-PCS; 2022-03-13)
PROC: 0W9G3ZZ Drainage of Peritoneal Cavity, Percutaneous Approach (ICD-10-PCS; principal; 2022-03-15)
PROC: 0W993ZZ Drainage of Right Pleural Cavity, Percutaneous Approach (ICD-10-PCS; 2022-03-20)
DX: J96.21 Acute and chronic respiratory failure with hypoxia (principal); N17.0 Acute kidney failure with tubular necrosis; I50.23 Acute on chronic systolic (congestive) heart failure; I95.9 Hypotension, unspecified; E87.2 Acidosis; I13.0 Hypertensive heart and chronic kidney disease with heart failure and stage 1 through stage 4 chronic kidney disease, or unspecified chronic kidney disease; I42.9 Cardiomyopathy, unspecified; K70.31 Alcoholic cirrhosis of liver with ascites; I48.0 Paroxysmal atrial fibrillation; E87.5 Hyperkalemia; I25.10 Atherosclerotic heart disease of native coronary artery without angina pectoris; Z20.822 Contact with and (suspected) exposure to COVID-19; E66.9 Obesity, unspecified; E78.5 Hyperlipidemia, unspecified; E87.6 Hypokalemia; E89.0 Postprocedural hypothyroidism; F10.20 Alcohol dependence, uncomplicated; F17.210 Nicotine dependence, cigarettes, uncomplicated; F32.A Depression, unspecified; F41.9 Anxiety disorder, unspecified; J44.9 Chronic obstructive pulmonary disease, unspecified; J98.11 Atelectasis; K59.00 Constipation, unspecified; J91.8 Pleural effusion in other conditions classified elsewhere; N18.2 Chronic kidney disease, stage 2 (mild); Z68.24 Body mass index [BMI] 24.0-24.9, adult; Z79.01 Long term (current) use of anticoagulants; Z79.82 Long term (current) use of aspirin; Z79.899 Other long term (current) drug therapy; Z80.0 Family history of malignant neoplasm of digestive organs; Z82.3 Family history of stroke; Z82.49 Family history of ischemic heart disease and other diseases of the circulatory system; Z82.5 Family history of asthma and other chronic lower respiratory diseases; Z83.3 Family history of diabetes mellitus; Z95.0 Presence of cardiac pacemaker; I25.2 Old myocardial infarction
CPT/HCPCS: 36415; 71045; 74176; 76604; 76700; 76775; 76942; 80048; 80053; 80076; 80162; 81001; 82140; 82248; 82306; 82570; 82962; 83615; 83735; 83880; 83970; 83986; 84100; 84132; 84156; 84300; 84484; 85025; 85610; 85730; 86803; 87070; 87205; 89051; 93005; 94640; 96365; 96375; 97116; 97163; 97530; G0378; J1815; J2405; J7060; P9047

== ENCOUNTER 2022-03-24 13:26 | Inpatient (IN) | payer MEDICAID ==
[~2022-03-24] VITALS: Ht 180.3 cm; Wt 90.6 kg
[~2022-03-24 13:26] MED LIST changes: -AMIO200T33 PO; +APIX5TAB PO; +FURO1TAB31 PO; -FURO20TA3 PO; +LACT10SO3 PO; -METO25TA5 PO; +MID10T PO; +SOTA80TA20 PO; -WARF5TAB71 PO
[2022-03-24] MEDS ORDERED: ONDANSETRON HCL 4 MG/2 ML VIAL IV ONE (14:00)
[2022-03-24] MEDS ORDERED: MORPHINE SULFATE 4 MG/ML SYR/VIAL IV ONE (14:00)
[2022-03-24] MEDS ORDERED: FUROSEMIDE 40 MG/4 ML VIAL IV ONE (14:00)
[2022-03-24 14:35] LABS: Basophils # (auto) 0.1 10 ^3/uL (0-0.2); Basophils % (auto) 2.4 % (0.0-2.0); Eosinophils # (auto) 0.1 10 ^3/uL (0-0.8); Hematocrit 45.2 % (36.0-46.0); Hemoglobin 14.2 g/dL (12.2-16.2); Lymphocytes # (auto) 0.9 10 ^3/uL (0.4-5.4); Lymphocytes % (auto) 14.7 % (10.0-50.0); Mean Corpuscular Hemoglobin 30.5 pg (28.0-32.0); Mean Corpuscular Hgb Conc. 31.5 g/dL (32.0-36.0); Monocytes % (auto) 17.8 % (0.0-12.0); Neutrophils # (auto) 3.7 10 ^3/uL (1.6-8.6); Neutrophils % (auto) 63.1 % (37.0-80.0); Nucleated Red Blood Cells % 0.1 %; Red Blood Cells 4.66 10^6/uL (4.0-5.20); Red Cell Distribution Width 18.4 % (11.8-14.3); White Blood Cell 5.8 10^3/uL (4.4-10.8)
[2022-03-24 14:48] LABS: Albumin 3.2 g/dL (3.4-5.0); Calcium 8.6 mg/dL (8.5-10.1); Potassium 4.2 mmol/L (3.5-5.1)
[2022-03-24 14:52] LABS: BUN/Creatinine Ratio 22.2; Bilirubin, Total 2.4 mg/dL (0.2-1.0); Total Protein 6.3 g/dL (6.4-8.2)
[2022-03-24 15:08] LABS: INR 1.16 (0.9-1.15); Partial Thromboplastin Time 25.3 sec (24.6-33.4)
[2022-03-24 17:49] LABS: Urine Bacteria NONE SEEN /hpf (None Seen); Urine Blood Negative /uL (Negative); Urine Specific Gravity 1.005 (1.001-1.035); Urine WBC <1 /hpf (0 - 5)
[2022-03-24] MEDS ORDERED: TEMAZEPAM 15 MG CAP PO PRN (21:30)
[2022-03-24] MEDS ORDERED: NITROGLYCERIN 0.4 MG SL TAB SL PRN (21:30)
[2022-03-24] MEDS ORDERED: ACETAMINOPHEN 325 MG TAB PO PRN (21:30)
[2022-03-24] MEDS ORDERED: MORPHINE SULFATE INJ 2 MG/ml SYRG IV PRN (21:30)
[2022-03-24] MEDS: APIXABAN 5 MG TAB PO SCH (23:49)
[2022-03-24] MEDS: ATORVASTATIN 20 MG TAB PO SCH (23:49)
[2022-03-25] VITALS (7 sets, daily range): BP systolic 92–127; BP diastolic 62–76
[2022-03-25] MEDS ORDERED: HYDROcodone-ACET 5/325MG TAB PO ONE (01:00)
[2022-03-25] MEDS ORDERED: MET25T PO (02:19)
[2022-03-25] MEDS ORDERED: PNEUMOCOCCAL VACC POLYS 25 MCG/0.5 ML VIAL IM ONE (03:45)
[2022-03-25 05:53] LABS: Basophils # (auto) 0 10 ^3/uL (0-0.2); Basophils % (auto) 0.3 % (0.0-2.0); Eosinophils # (auto) 0.1 10 ^3/uL (0-0.8); Eosinophils % (auto) 2.7 % (0.0-7.0); Hematocrit 38.6 % (36.0-46.0); Hemoglobin 12.5 g/dL (12.2-16.2); Lymphocytes % (auto) 18.2 % (10.0-50.0); Mean Corpuscular Hgb Conc. 32.4 g/dL (32.0-36.0); Mean Corpuscular Volume 95.7 fL (80.0-100.0); Monocytes # (auto) 0.9 10 ^3/uL (0-1.3); Monocytes % (auto) 16.5 % (0.0-12.0); Neutrophils # (auto) 3.4 10 ^3/uL (1.6-8.6); Neutrophils % (auto) 62.3 % (37.0-80.0); Nucleated Red Blood Cells % 0.1 %; Red Blood Cells 4.03 10^6/uL (4.0-5.20); White Blood Cell 5.4 10^3/uL (4.4-10.8)
[2022-03-25] MEDS: FUROSEMIDE 20 MG/2 ML VIAL IV SCH ×2 (06:01→18:00)
[2022-03-25 06:08] LABS: Albumin 2.7 g/dL (3.4-5.0)
[2022-03-25 06:10] LABS: BUN/Creatinine Ratio 23.9
[2022-03-25 06:13] LABS: Bilirubin, Total 1.8 mg/dL (0.2-1.0); Total Protein 5.8 g/dL (6.4-8.2)
[2022-03-25] MEDS ORDERED: PANTOPRAZOLE 40 MG/10 ML VIAL INJ IV SCH (10:00)
[2022-03-25] MEDS: SOTALOL HCL 80 MG TAB PO SCH (10:49)
[2022-03-25] MEDS: ASPirin 81 mg TAB PO SCH (10:49)
[2022-03-25] MEDS: APIXABAN 5 MG TAB PO SCH ×2 (10:50→21:56)
[2022-03-25] MEDS: POTASSIUM CHL 10 Meq TABLET PO SCH (10:50)
[2022-03-25] MEDS: LISINOPRIL 5 MG TAB PO SCH (10:51)
[2022-03-25] MEDS: HYDROcodone-ACET 5/325MG TAB PO PRN ×2 (10:57→22:10)
[2022-03-25] MEDS ORDERED: NICOTINE 7MG/24HR TOPICAL PATCH TD ONE (14:45)
[2022-03-25] MEDS: ATORVASTATIN 20 MG TAB PO SCH (21:56)
[2022-03-25] MEDS: ONDANSETRON HCL 4 MG/2 ML VIAL IV PRN (23:20)
[2022-03-26 05:00] VITALS: BP 101/68
[2022-03-26] MEDS: FUROSEMIDE 20 MG/2 ML VIAL IV SCH ×2 (05:29→18:27)
[2022-03-26 05:59] LABS: Calcium 7.9 mg/dL (8.5-10.1); Potassium 4.6 mmol/L (3.5-5.1)
[2022-03-26 06:02] LABS: BUN/Creatinine Ratio 30.8
[2022-03-26 09:00] VITALS: BP 99/63
[2022-03-26] MEDS: LISINOPRIL 5 MG TAB PO SCH (10:00)
[2022-03-26] MEDS: SOTALOL HCL 80 MG TAB PO SCH (10:00)
[2022-03-26] MEDS: HYDROcodone-ACET 5/325MG TAB PO PRN ×2 (10:30→21:53)
[2022-03-26] MEDS: ASPirin 81 mg TAB PO SCH (10:31)
[2022-03-26] MEDS: APIXABAN 5 MG TAB PO SCH ×2 (10:31→21:48)
[2022-03-26] MEDS: POTASSIUM CHL 10 Meq TABLET PO SCH (10:31)
[2022-03-26] MEDS: NICOTINE 7MG/24HR TOPICAL PATCH TD SCH (10:32)
[2022-03-26 13:00] VITALS: BP 110/65
[2022-03-26] MEDS: ATORVASTATIN 20 MG TAB PO SCH (21:48)
[2022-03-26 23:05] VITALS: BP 91/62
[2022-03-27 05:27] VITALS: BP 116/76
[2022-03-27] MEDS: FUROSEMIDE 20 MG/2 ML VIAL IV SCH ×2 (06:38→19:41)
[2022-03-27 09:00] VITALS: BP 108/77
[2022-03-27] MEDS: SOTALOL HCL 80 MG TAB PO SCH (10:00)
[2022-03-27] MEDS: LISINOPRIL 5 MG TAB PO SCH (10:00)
[2022-03-27] MEDS: POTASSIUM CHL 10 Meq TABLET PO SCH (10:02)
[2022-03-27] MEDS: HYDROcodone-ACET 5/325MG TAB PO PRN ×2 (10:03→21:10)
[2022-03-27] MEDS: APIXABAN 5 MG TAB PO SCH ×2 (10:03→21:10)
[2022-03-27] MEDS: ASPirin 81 mg TAB PO SCH (10:03)
[2022-03-27] MEDS: NICOTINE 7MG/24HR TOPICAL PATCH TD SCH (10:07)
[2022-03-27 13:00] VITALS: BP 117/74
[2022-03-27 17:01] VITALS: BP 99/63
[2022-03-27] MEDS: ATORVASTATIN 20 MG TAB PO SCH (21:11)
[2022-03-27 22:00] VITALS: BP 91/66
[2022-03-28 05:00] VITALS: BP 98/57
[2022-03-28] MEDS: FUROSEMIDE 20 MG/2 ML VIAL IV SCH ×2 (06:00→18:00)
[2022-03-28 09:00] VITALS: BP 103/79
[2022-03-28] MEDS: POTASSIUM CHL 10 Meq TABLET PO SCH (09:49)
[2022-03-28] MEDS: APIXABAN 5 MG TAB PO SCH (09:49)
[2022-03-28] MEDS: ASPirin 81 mg TAB PO SCH (09:49)
[2022-03-28] MEDS: LISINOPRIL 5 MG TAB PO SCH (09:50)
[2022-03-28] MEDS: NICOTINE 7MG/24HR TOPICAL PATCH TD SCH (09:50)
[2022-03-28] MEDS: SOTALOL HCL 80 MG TAB PO SCH (09:50)
[2022-03-28] MEDS: HYDROcodone-ACET 5/325MG TAB PO PRN (09:54)
[2022-03-28 13:00] VITALS: BP 117/74
[2022-03-28 17:00] VITALS: BP 96/51
[2022-03-28] MEDS: ONDANSETRON HCL 4 MG/2 ML VIAL IV PRN (19:38)
== END 2022-03-28 20:43 | disposition home or self-care (01) | DRG 194 ==
LOC: ER 13:30 → TELE 21:25 → TELE-WESTW 23:46
PROVIDERS: ADMIT Nurse Practitioner; ATTEND Internal Medicine
DX: I11.0 Hypertensive heart disease with heart failure (principal); D68.69 Other thrombophilia; I49.5 Sick sinus syndrome; J96.10 Chronic respiratory failure, unspecified whether with hypoxia or hypercapnia; K74.60 Unspecified cirrhosis of liver; I48.91 Unspecified atrial fibrillation; K80.20 Calculus of gallbladder without cholecystitis without obstruction; K57.30 Diverticulosis of large intestine without perforation or abscess without bleeding; J44.9 Chronic obstructive pulmonary disease, unspecified; K44.9 Diaphragmatic hernia without obstruction or gangrene; I50.43 Acute on chronic combined systolic (congestive) and diastolic (congestive) heart failure; I25.10 Atherosclerotic heart disease of native coronary artery without angina pectoris; I08.3 Combined rheumatic disorders of mitral, aortic and tricuspid valves; F17.210 Nicotine dependence, cigarettes, uncomplicated; E87.5 Hyperkalemia; E78.5 Hyperlipidemia, unspecified; I70.0 Atherosclerosis of aorta; K59.00 Constipation, unspecified; Z95.810 Presence of automatic (implantable) cardiac defibrillator; Z83.3 Family history of diabetes mellitus; Z82.49 Family history of ischemic heart disease and other diseases of the circulatory system; Z80.0 Family history of malignant neoplasm of digestive organs
CPT/HCPCS: 36415; 71045; 74176; 80048; 80053; 81001; 82140; 82150; 83690; 83735; 83880; 84484; 85025; 85610; 85730; 87081; 93005; 96374; 96375; 99291; C9113; G0378; J2405

== ENCOUNTER 2022-04-07 04:48 | Inpatient (IN) | payer MEDICAID ==
[~2022-04-07] VITALS: Ht 175.3 cm; Wt 94.5 kg
[~2022-04-07 04:48] MED LIST changes: +MET25T PO
[2022-04-07 06:11] LABS: Basophils # (auto) 0 10 ^3/uL (0-0.2); Basophils % (auto) 0.5 % (0.0-2.0); Eosinophils # (auto) 0 10 ^3/uL (0-0.8); Eosinophils % (auto) 0.8 % (0.0-7.0); Hematocrit 43.6 % (36.0-46.0); Hemoglobin 13.8 g/dL (12.2-16.2); Lymphocytes # (auto) 1.3 10 ^3/uL (0.4-5.4); Lymphocytes % (auto) 21.3 % (10.0-50.0); Mean Corpuscular Hemoglobin 30.8 pg (28.0-32.0); Mean Corpuscular Hgb Conc. 31.7 g/dL (32.0-36.0); Monocytes # (auto) 0.8 10 ^3/uL (0-1.3); Monocytes % (auto) 12.2 % (0.0-12.0); Neutrophils # (auto) 4.1 10 ^3/uL (1.6-8.6); Neutrophils % (auto) 65.2 % (37.0-80.0); Nucleated Red Blood Cells % 0.1 %; Red Cell Distribution Width 17.6 % (11.8-14.3); White Blood Cell 6.2 10^3/uL (4.4-10.8)
[2022-04-07 06:20] LABS: INR 1.26 (0.9-1.15); Partial Thromboplastin Time 27.1 sec (24.6-33.4)
[2022-04-07] MEDS ORDERED: ONDANSETRON HCL 4 MG/2 ML VIAL IV ONE (06:45)
[2022-04-07] MEDS ORDERED: MORPHINE SULFATE INJ 2 MG/ml SYRG IV ONE (06:45)
[2022-04-07] MEDS ORDERED: FUROSEMIDE 40 MG/4 ML VIAL IV ONE (07:00)
[2022-04-07 07:10] LABS: Potassium 4.8 mmol/L (3.5-5.1)
[2022-04-07 07:16] LABS: Albumin 3.5 g/dL (3.4-5.0); BUN/Creatinine Ratio 30.9; Bilirubin, Total 1.7 mg/dL (0.2-1.0); Calcium 8.6 mg/dL (8.5-10.1); Magnesium 1.9 mg/dL (1.6-2.6); Total Protein 6.9 g/dL (6.4-8.2)
[2022-04-07 07:38] LABS: Urine Bacteria FEW /hpf (None Seen); Urine Blood Negative /uL (Negative); Urine Mucus FEW (None Seen); Urine Specific Gravity 1.034 (1.001-1.035); Urine WBC 3 /hpf (0 - 5)
[2022-04-07] MEDS ORDERED: THIAMINE 100mg/ml INJ (200mg/2ml VIAL) IV ONE (13:00)
[2022-04-07] MEDS ORDERED: MORPHINE SULFATE INJ 2 MG/ml SYRG IV PRN (13:00)
[2022-04-07] MEDS ORDERED: LORazepam 2MG/ML-1ML VIAL IV PRN (13:00)
[2022-04-07] MEDS ORDERED: SODIUM CHLORIDE 0.9% 500 ML IV ONE (13:00)
[2022-04-07] MEDS ORDERED: NITROGLYCERIN 0.4 MG SL TAB SL PRN (13:00)
[2022-04-07 13:04] LABS: Amylase 32 U/L (25-115); Lipase 38 U/L (73-393)
[2022-04-07] MEDS ORDERED: cefTRIAXone 1GM/50ML D5W 50 ML IV ONE (13:15)
[2022-04-07] MEDS: MIDODRINE HCL 10 MG TAB PO SCH (20:00)
[2022-04-07] MEDS: APIXABAN 5 MG TAB PO SCH (23:09)
[2022-04-07] MEDS: METOPROLOL TARTRATE 25 MG TAB PO SCH (23:15)
[2022-04-08] MEDS ORDERED: MORPHINE SULFATE 4 MG/ML SYR/VIAL ONE (01:21)
[2022-04-08] MEDS: MORPHINE SULFATE INJ 2 MG/ml SYRG IV PRN ×3 (01:25→14:59)
[2022-04-08] MEDS: ONDANSETRON HCL 4 MG/2 ML VIAL IV PRN ×3 (03:43→14:59)
[2022-04-08 05:27] LABS: Basophils # (auto) 0.2 10 ^3/uL (0-0.2); Basophils % (auto) 3.3 % (0.0-2.0); Eosinophils # (auto) 0.1 10 ^3/uL (0-0.8); Eosinophils % (auto) 2.2 % (0.0-7.0); Hematocrit 39.3 % (36.0-46.0); Hemoglobin 12.8 g/dL (12.2-16.2); Lymphocytes # (auto) 1.3 10 ^3/uL (0.4-5.4); Lymphocytes % (auto) 21.9 % (10.0-50.0); Mean Corpuscular Hemoglobin 31.2 pg (28.0-32.0); Mean Corpuscular Hgb Conc. 32.5 g/dL (32.0-36.0); Mean Corpuscular Volume 96.1 fL (80.0-100.0); Monocytes # (auto) 0.9 10 ^3/uL (0-1.3); Monocytes % (auto) 14.9 % (0.0-12.0); Neutrophils # (auto) 3.5 10 ^3/uL (1.6-8.6); Neutrophils % (auto) 57.7 % (37.0-80.0); Nucleated Red Blood Cells % 0.1 %; Red Blood Cells 4.09 10^6/uL (4.0-5.20); Red Cell Distribution Width 16.9 % (11.8-14.3)
[2022-04-08 05:47] LABS: Albumin 3.2 g/dL (3.4-5.0); Calcium 8.2 mg/dL (8.5-10.1); Potassium 4.2 mmol/L (3.5-5.1)
[2022-04-08 05:48] LABS: BUN/Creatinine Ratio 33.3
[2022-04-08 05:51] LABS: Bilirubin, Total 1.6 mg/dL (0.2-1.0); Total Protein 6.2 g/dL (6.4-8.2)
[2022-04-08] MEDS: MIDODRINE HCL 10 MG TAB PO SCH ×3 (06:39→18:00)
[2022-04-08] MEDS: APIXABAN 5 MG TAB PO SCH (08:50)
[2022-04-08] MEDS: METOPROLOL TARTRATE 25 MG TAB PO SCH (08:52)
[2022-04-08] MEDS ORDERED: cefTRIAXone 1GM/50ML D5W 50 ML IV SCH (09:00)
[2022-04-08] MEDS ORDERED: SOTALOL HCL 80 MG TAB PO SCH (10:00)
[2022-04-08] MEDS ORDERED: THIAMINE 100mg/ml INJ (200mg/2ml VIAL) IV SCH (10:00)
[2022-04-08] MEDS ORDERED: FUROSEMIDE 20 MG/2 ML VIAL IV SCH (10:00)
[2022-04-08] MEDS ORDERED: LISINOPRIL 5 MG TAB PO SCH (10:00)
[2022-04-08] MEDS ORDERED: POTASSIUM CHL 20 Meq TABLET PO SCH (10:00)
[2022-04-08] MEDS ORDERED: ASPirin-EC 81 mg tab PO SCH (10:00)
[2022-04-08] MEDS ORDERED: ATORVASTATIN 20 MG TAB PO SCH (10:00)
[2022-04-08] MEDS ORDERED: URSO1TAB8 PO (15:51)
[2022-04-08] MEDS ORDERED: PANC24002 PO (15:51)
[2022-04-08 20:05] VITALS: BP 116/78
[2022-04-08] MEDS ORDERED: IPRATROPIUM BROM 0.5 MG/2.5ML INH SOL NEB SCH (22:00)
[2022-04-08] MEDS ORDERED: ALBUTEROL SULF 2.5 MG/0.5ML(0.5%) NEB SOLN NEB SCH (22:00)
== END 2022-04-08 20:14 | disposition home or self-care (01) ==
LOC: EDBD 04:48 → ER 04:48 → TELE 12:55
PROVIDERS: ADMIT Registered Nurse; ATTEND Hospitalist
DX: K80.20 Calculus of gallbladder without cholecystitis without obstruction (principal); I50.33 Acute on chronic diastolic (congestive) heart failure; D68.59 Other primary thrombophilia; I42.9 Cardiomyopathy, unspecified; R18.8 Other ascites; K74.60 Unspecified cirrhosis of liver; I11.0 Hypertensive heart disease with heart failure; E78.5 Hyperlipidemia, unspecified; N39.0 Urinary tract infection, site not specified; F17.210 Nicotine dependence, cigarettes, uncomplicated; I25.10 Atherosclerotic heart disease of native coronary artery without angina pectoris; Z20.822 Contact with and (suspected) exposure to COVID-19; F32.A Depression, unspecified; F41.9 Anxiety disorder, unspecified; R09.89 Other specified symptoms and signs involving the circulatory and respiratory systems; I48.91 Unspecified atrial fibrillation; J44.9 Chronic obstructive pulmonary disease, unspecified; Z80.0 Family history of malignant neoplasm of digestive organs; Z82.3 Family history of stroke; I25.2 Old myocardial infarction; Z82.49 Family history of ischemic heart disease and other diseases of the circulatory system
CPT/HCPCS: 36415; 71045; 74176; 76700; 80053; 80320; 81001; 82140; 82150; 83690; 83735; 83880; 84484; 85025; 85610; 85730; 93005; 93970; 96365; 96375; G0378; J0696; J2405

== ENCOUNTER → 2022-05-13 | Outpatient (CLI) | payer MEDICAID ==
[~2022-05-13] VITALS: Ht 180.3 cm; Wt 72.1 kg
[~2022-05-13] MED LIST changes: +PANC24002 PO; +URSO1TAB8 PO
== END | disposition home or self-care (01) ==
LOC: Rad HDHVI 14:08
PROVIDERS: ATTEND Internal Medicine Cardiovascular Disease
DX: I11.0 Hypertensive heart disease with heart failure (principal); I50.43 Acute on chronic combined systolic (congestive) and diastolic (congestive) heart failure; I48.20 Chronic atrial fibrillation, unspecified; I42.0 Dilated cardiomyopathy; I25.2 Old myocardial infarction; E78.5 Hyperlipidemia, unspecified; I25.10 Atherosclerotic heart disease of native coronary artery without angina pectoris; F17.210 Nicotine dependence, cigarettes, uncomplicated; Z95.0 Presence of cardiac pacemaker; Z79.82 Long term (current) use of aspirin; Z79.899 Other long term (current) drug therapy
CPT/HCPCS: 78472; 96374; 96375; A9505

== ENCOUNTER → 2022-05-20 | Outpatient (CLI) | payer MEDICAID ==
[~2022-05-20] VITALS: Ht 180.3 cm; Wt 72.1 kg
[~2022-05-20] MED LIST changes: +ADENOSINE 61 MG in GIVE UN-DILUTED 0 ML IV ONE; +ADENOSINE 90 MG/30 ML INJ IV ONE
== END | disposition home or self-care (01) ==
LOC: Rad HDHVI 13:56
PROVIDERS: ATTEND Internal Medicine Cardiovascular Disease
DX: I11.0 Hypertensive heart disease with heart failure (principal); I50.43 Acute on chronic combined systolic (congestive) and diastolic (congestive) heart failure; I42.0 Dilated cardiomyopathy; I48.20 Chronic atrial fibrillation, unspecified; R06.02 Shortness of breath; I25.2 Old myocardial infarction; E78.5 Hyperlipidemia, unspecified; F17.210 Nicotine dependence, cigarettes, uncomplicated; Z82.49 Family history of ischemic heart disease and other diseases of the circulatory system; Z95.0 Presence of cardiac pacemaker
CPT/HCPCS: 78452; 93005; 96374; 96375; A9500; J0153

== ENCOUNTER → 2022-06-14 | Outpatient (CLI) | payer MEDICAID ==
[~2022-06-14] MED LIST changes: -ADENOSINE 61 MG in GIVE UN-DILUTED 0 ML IV ONE; -ADENOSINE 90 MG/30 ML INJ IV ONE; +IOHEXOL 350 MG/ML 100ML IJ ONE; +READI-CAT 2 (BARIUM SULF)(VANILLA SMOOTHIE) 450ML ONE
[2022-06-14 10:30] VITALS: BP 126/81
[2022-06-14 12:40] VITALS: BP 135/85
== END | disposition home or self-care (01) ==
LOC: Rad HDHVI 10:18
PROVIDERS: ATTEND Internal Medicine Cardiovascular Disease
DX: R94.4 Abnormal results of kidney function studies (principal)
CPT/HCPCS: 36415; 71260; 74177; 82565; 84520; G0463

== ENCOUNTER → 2023-01-22 | Outpatient (CLI) | payer MEDICAID ==
[~2023-01-22] MED LIST changes: -IOHEXOL 350 MG/ML 100ML IJ ONE; -READI-CAT 2 (BARIUM SULF)(VANILLA SMOOTHIE) 450ML ONE
== END | disposition home or self-care (01) ==
LOC: Rad HDHVI 12:57
PROVIDERS: ATTEND Internal Medicine Cardiovascular Disease
DX: I08.1 Rheumatic disorders of both mitral and tricuspid valves (principal); E78.5 Hyperlipidemia, unspecified
CPT/HCPCS: 93306

== ENCOUNTER → 2023-02-10 | Outpatient (CLI) | payer MEDICAID ==
[~2023-02-10] VITALS: Ht 180.3 cm; Wt 77.1 kg
[~2023-02-10] MED LIST changes: +ADENOSINE 65 MG in GIVE UN-DILUTED 0 ML IV ONE; +ADENOSINE 90 MG/30 ML INJ IV ONE
== END | disposition home or self-care (01) ==
LOC: Rad HDHVI 13:25
PROVIDERS: ATTEND Internal Medicine Cardiovascular Disease
DX: I11.0 Hypertensive heart disease with heart failure (principal); I50.43 Acute on chronic combined systolic (congestive) and diastolic (congestive) heart failure; I25.5 Ischemic cardiomyopathy; F17.210 Nicotine dependence, cigarettes, uncomplicated; E78.5 Hyperlipidemia, unspecified; I95.89 Other hypotension; Z82.49 Family history of ischemic heart disease and other diseases of the circulatory system; Z95.0 Presence of cardiac pacemaker
CPT/HCPCS: 78452; 93005; 96374; 96375; A9500; J0153

== ENCOUNTER → 2024-08-04 | Outpatient (CLI) | payer MEDICARE, MEDICAID ==
[~2024-08-04] MED LIST changes: -ADENOSINE 65 MG in GIVE UN-DILUTED 0 ML IV ONE; -ADENOSINE 90 MG/30 ML INJ IV ONE; +PANC2400 PO; -PANC24002 PO
--- NOTE | 2024-08-04 16:49 | DVH ---
CLINICAL INDICATION: PAIN TECHNIQUE: XY L SHOULDER 2+ VIEW XRAY Comparison: None FINDINGS/IMPRESSION: : There is no evidence of acute fracture or dislocation. Soft tissues are unremarkable.
== END | disposition home or self-care (01) ==
LOC: Rad HDHVI 15:48
PROVIDERS: ATTEND Internal Medicine Cardiovascular Disease
DX: M25.512 Pain in left shoulder (principal)
CPT/HCPCS: 73030

== ENCOUNTER → 2024-08-23 | Outpatient (CLI) | payer MEDICARE, MEDICAID ==
[~2024-08-23] VITALS: Ht 180.3 cm; Wt 89.4 kg
[~2024-08-23] MED LIST changes: +ADENOSINE 75 MG in GIVE UN-DILUTED 0 ML IV ONE; +ADENOSINE 90 MG/30 ML INJ IV ONE
== END | disposition home or self-care (01) ==
LOC: Rad HDHVI 09:48
PROVIDERS: ATTEND Internal Medicine Cardiovascular Disease
DX: I49.3 Ventricular premature depolarization (principal); I10 Essential (primary) hypertension; I48.91 Unspecified atrial fibrillation; R00.0 Tachycardia, unspecified; I11.0 Hypertensive heart disease with heart failure; I50.43 Acute on chronic combined systolic (congestive) and diastolic (congestive) heart failure; E78.00 Pure hypercholesterolemia, unspecified; R00.2 Palpitations; I48.0 Paroxysmal atrial fibrillation; I42.0 Dilated cardiomyopathy; R60.9 Edema, unspecified; R06.02 Shortness of breath; F17.210 Nicotine dependence, cigarettes, uncomplicated; I25.5 Ischemic cardiomyopathy; E78.5 Hyperlipidemia, unspecified; Z95.0 Presence of cardiac pacemaker; Z82.49 Family history of ischemic heart disease and other diseases of the circulatory system
CPT/HCPCS: 78452; 93005; 93017; A9500; J0153; 96374; 96375

== ENCOUNTER 2025-02-21 09:17 | Outpatient (CLI) | payer MEDICARE, MEDICAID ==
[~2025-02-21] VITALS: Ht 180.3 cm; Wt 86.2 kg
[~2025-02-21 09:17] MED LIST changes: -ADENOSINE 75 MG in GIVE UN-DILUTED 0 ML IV ONE; -ADENOSINE 90 MG/30 ML INJ IV ONE
[2025-02-21] MEDS ORDERED: ADENOSINE 72 MG in GIVE UN-DILUTED 0 ML IV ONE (09:45)
[2025-02-21] MEDS ORDERED: ADENOSINE 90 MG/30 ML INJ IV ONE (09:52)
== END 2025-02-21 17:00 | disposition home or self-care (01) ==
LOC: Rad HDHVI 09:17
PROVIDERS: ATTEND Internal Medicine Cardiovascular Disease
DX: I49.3 Ventricular premature depolarization (principal); I48.20 Chronic atrial fibrillation, unspecified; I25.10 Atherosclerotic heart disease of native coronary artery without angina pectoris; I11.0 Hypertensive heart disease with heart failure; I50.23 Acute on chronic systolic (congestive) heart failure; I25.5 Ischemic cardiomyopathy; I42.0 Dilated cardiomyopathy; I25.2 Old myocardial infarction; E78.00 Pure hypercholesterolemia, unspecified; R00.2 Palpitations; Z95.810 Presence of automatic (implantable) cardiac defibrillator; Z79.82 Long term (current) use of aspirin; Z82.49 Family history of ischemic heart disease and other diseases of the circulatory system
CPT/HCPCS: 78452; 93017; A9500; J0153

== ENCOUNTER 2025-02-22 10:16 | Outpatient (CLI) | payer MEDICARE, MEDICAID | END 2025-02-22 17:00 | disposition home or self-care (01) | LOC: Rad HDHVI 10:16 | PROVIDERS: ATTEND Internal Medicine Cardiovascular Disease | DX: I08.1 Rheumatic disorders of both mitral and tricuspid valves (principal); I25.10 Atherosclerotic heart disease of native coronary artery without angina pectoris; I50.23 Acute on chronic systolic (congestive) heart failure | CPT/HCPCS: 93306 ==

== ENCOUNTER 2025-03-09 10:41 | Outpatient (CLI) | payer MEDICARE, MEDICAID | END 2025-03-09 17:00 | disposition home or self-care (01) | LOC: Rad HDHVI 10:41 | PROVIDERS: ATTEND Internal Medicine Cardiovascular Disease | DX: I48.0 Paroxysmal atrial fibrillation (principal); I42.1 Obstructive hypertrophic cardiomyopathy; I10 Essential (primary) hypertension; E78.5 Hyperlipidemia, unspecified | CPT/HCPCS: 93880 ==